=== PATIENT | female | born 1995 | race Caucasian/White ===

== ENCOUNTER → 2019-01-19 13:45 | Outpatient (CLI) | payer OTHER, BC, SELFPAY ==
[2019-01-19 14:20] LABS: Basophils % 0.6 % (0.1-2.0); Eosinophils # 0.2 K/mm3 (0.0-0.4); Hematocrit 38.4 % (37.0-47.0); Hemoglobin 11.7 g/dL (12.2-16.2); Lymphocytes # 1.3 K/mm3 (0.7-4.5); Lymphocytes % 28.4 % (10-50); Mean Corpuscular HGB Conc 30.5 g/dL (31.8-35.4); Mean Corpuscular Hemoglobin 25.4 pg (27.0-31.2); Mean Corpuscular Volume 83.4 fl (81-99); Mean Platelet Volume 7.5 fl (7.4-10.4); Monocytes # 0.3 K/mm3 (0.1-1.0); Monocytes % 6.1 % (1.7-9.3); Neutrophils # 2.9 K/mm3 (1.8-7.8); Neutrophils % 60.9 % (37.0-80.0); Platelet Count 272 K/mm3 (142-424); Red Cell Distribution Width 16.3 % (11.5-17.5); White Blood Count 4.7 K/mm3 (4.8-10.8)
[2019-01-19 15:35] LABS: Alanine Aminotransferase 24 U/L (12-78); Albumin Level 3.7 gm/dL (3.4-5.0); Albumin/Globulin Ratio 1.2 (1.1-1.8); Alkaline Phosphatase 61 U/L (46-116); Amylase 62 U/L (25-115); Anion Gap 10.8 mEq/L (5-15); Aspartate Amino Transferase 10 U/L (15-37); Bilirubin,Total 0.4 mg/dL (0.2-1.0); Blood Urea Nitrogen 9 mg/dL (7-18); Calcium 8.6 mg/dL (8.5-10.1); Carbon Dioxide 28 mmol/L (21.0-32.0); Chloride 107 mmol/L (98-107); Estimated Glomerular Filt Rate 76 ml/min (>60); Ferritin 19 ng/mL (8-388); GFR (African American) 92 ML/MIN (>60); Globulin 3.2 gm/dl (1.3-3.2); Glucose 68 mg/dL (74-106); Lipase 206 u/L (73-393); Potassium 3.8 mmoL/L (3.5-5.1); Sodium 142 mmol/L (136-145); Total Protein,Serum 6.9 gm/dL (6.4-8.2)
[2019-01-19 15:36] LABS: C-Reactive Protein < 0.2 mg/L (0.0-0.9)
[2019-01-19 17:09] LABS: Erythrocyte Sedimentation Rate 13 mm/hr (0-20)
[2019-01-21 08:40] LABS: Iron 59 ug/dL (27-159); UIBC 264 ug/dL (131-425)
[2019-01-21 18:12] LABS: Vitamin D 25 Hydroxy 24.6 ng/mL (30.0-100.0)
[2019-01-21 18:15] LABS: Deamidated Gliadin Abs, IgA 2 units (0-19); Deamidated Gliadin Abs, IgG 2 units (0-19); Iron Saturation 18 % (15-55); Tissue Transglutaminase IgA Ab <2 U/mL (0-3); Tissue Transglutaminase IgG Ab <2 U/mL (0-5); Vitamin B12 863 pg/mL (232-1245)
[2019-01-23 20:15] LABS: Endomysial IgA Antibody Negative (Negative)
[2019-01-26 08:16] LABS: Reticulin IgA Antibody Negative titer (Neg:<1:2.5)
== END ==
PROVIDERS: PCP Nurse Practitioner Family; Visit Provider Internal Medicine Gastroenterology
DX: R10.11 Right upper quadrant pain (principal); K58.1 Irritable bowel syndrome with constipation; R11.0 Nausea
CPT/HCPCS: 36415; 80053; 82150; 82607; 82652; 82728; 83516; 83540; 83550; 83690; 85025; 85651; 86140; 86255; 86256

== ENCOUNTER → 2019-03-14 14:42 | Outpatient (CLI) | payer BC, OTHER, SELFPAY ==
[2019-03-14 15:11] LABS: Basophils % 0.7 % (0.1-2.0); Eosinophils # 0.1 K/mm3 (0.0-0.4); Eosinophils % 1.8 % (0.1-12.0); Hematocrit 37.3 % (37.0-47.0); Lymphocytes # 2.1 K/mm3 (0.7-4.5); Lymphocytes % 35.7 % (10-50); Mean Corpuscular HGB Conc 32.1 g/dL (31.8-35.4); Mean Corpuscular Hemoglobin 28.2 pg (27.0-31.2); Mean Corpuscular Volume 87.9 fl (81-99); Mean Platelet Volume 7.9 fl (7.4-10.4); Monocytes # 0.3 K/mm3 (0.1-1.0); Monocytes % 4.5 % (1.7-9.3); Neutrophils # 3.3 K/mm3 (1.8-7.8); Neutrophils % 57.3 % (37.0-80.0); Platelet Count 283 K/mm3 (142-424); Red Blood Count 4.25 M/mm3 (4.20-5.40); Red Cell Distribution Width 14.4 % (11.5-17.5); White Blood Count 5.8 K/mm3 (4.8-10.8)
[2019-03-14 16:42] LABS: Ferritin 20 ng/mL (8-388)
[2019-03-16 08:14] LABS: Iron 35 ug/dL (27-159); UIBC 275 ug/dL (131-425)
[2019-03-16 11:54] LABS: Iron Saturation 11 % (15-55)
== END ==
PROVIDERS: Visit Provider Internal Medicine Medical Oncology
DX: D50.9 Iron deficiency anemia, unspecified (principal); K92.1 Melena; Z87.19 Personal history of other diseases of the digestive system
CPT/HCPCS: 36415; 82728; 83540; 83550; 85025

== ENCOUNTER → 2019-03-27 14:41 | Outpatient (POV) | payer BC, OTHER, SELFPAY | PROVIDERS: PCP Nurse Practitioner Family; Referring Provider Internal Medicine Medical Oncology; Visit Provider Nurse Practitioner Family | DX: Z00.00 Encounter for general adult medical examination without abnormal findings (principal) ==

== ENCOUNTER → 2019-07-03 13:31 | Outpatient (POV) | payer BC, OTHER, SELFPAY | PROVIDERS: Visit Provider Nurse Practitioner Family | DX: Z00.00 Encounter for general adult medical examination without abnormal findings (principal) ==

== ENCOUNTER → 2019-07-18 17:59 | Outpatient (CLI) | payer OTHER, BC, SELFPAY ==
[2019-07-18 18:12] LABS: Basophils # 0.1 K/mm3 (0-0.2); Basophils % 0.8 % (0.1-2.0); Eosinophils # 0.2 K/mm3 (0.0-0.4); Eosinophils % 2.8 % (0.1-12.0); Hematocrit 40.1 % (37.0-47.0); Hemoglobin 12.9 g/dL (12.2-16.2); Lymphocytes # 2.4 K/mm3 (0.7-4.5); Mean Corpuscular HGB Conc 32.2 g/dL (31.8-35.4); Mean Corpuscular Hemoglobin 29.1 pg (27.0-31.2); Mean Corpuscular Volume 90.3 fl (81-99); Mean Platelet Volume 7.7 fl (7.4-10.4); Monocytes # 0.2 K/mm3 (0.1-1.0); Monocytes % 3.7 % (1.7-9.3); Neutrophils # 3.4 K/mm3 (1.8-7.8); Neutrophils % 54.7 % (37.0-80.0); Platelet Count 272 K/mm3 (142-424); Red Blood Count 4.44 M/mm3 (4.20-5.40); Red Cell Distribution Width 12.8 % (11.5-17.5); White Blood Count 6.2 K/mm3 (4.8-10.8)
[2019-07-18 19:04] LABS: Ferritin 38 ng/mL (8-388)
[2019-07-20 09:48] LABS: Iron 36 ug/dL (27-159); UIBC 340 ug/dL (131-425)
[2019-07-20 15:40] LABS: Iron Saturation 10 % (15-55)
== END ==
PROVIDERS: Visit Provider Internal Medicine Medical Oncology
DX: D64.9 Anemia, unspecified (principal)
CPT/HCPCS: 36415; 82728; 83540; 83550; 85025

== ENCOUNTER 2020-03-07 14:13 | Emergency (ER) | payer BC, SELFPAY ==
[2020-03-07 14:32] VITALS: BP 97/48; PULSE 62; RESP 15; TEMP 36.8; O2SAT 98; BMI 27.4
--- NOTE | 2020-03-07 14:54 | HMH.EDGENADL ---
ED Disposition Clinical Impression: Migraine Qualifiers: Migraine type: unspecified Status migrainosus presence: without status migrainosus Intractability: not intractable Qualified Code(s): G43.909 - Migraine, unspecified, not intractable, without status migrainosus Disposition: Home, Self-Care Condition on Discharge: Good Instructions: DI for Migraine Additional Instructions: You have been evaluated for headache, consistent with migraine. Please continue taking all medications as prescribed. Take Tylenol and Motrin. Follow-up with your primary care doctor. Return to the emergency department if you have any new or worsening symptoms, headache, vision changes, nausea, vomiting, neck pain, fevers, other concerns Referrals: PCP,No [Primary Care Provider] - Time of Disposition: 17:02 - Critical Care Critical Care Time: No Attestation: On 03/07/20, the high probability of a clinically significant, sudden or life threatening deterioration of the following system(s) required my full and direct attention, intervention and personal management. The time I documented below is in addition to time spent performing reported procedures but includes the following listed in this critical care notation. Medical Decision Making - Medical Records Medical records reviewed: Yes: I reviewed the patient's medical records. - Alexandre Inquiry Pt receiving controlled substance: No Vital Signs: 03/07/20 14:32 03/07/20 15:02 03/07/20 16:00 Temperature 98.2 F Temperature Source Oral Pulse Rate [Right Brachial] 62 84 74 Respiratory Rate 15 15 Blood Pressure [Right Arm] 97/48 L 101/42 L 115/62 Blood Pressure Mean [Right Arm] 64 61 79 02 Sat by Pulse Oximetry 98 98 98 03/07/20 16:30 Temperature Temperature Source Pulse Rate [Right Brachial] 80 Respiratory Rate Blood Pressure [Right Arm] 92/50 L Blood Pressure Mean [Right Arm] 64 02 Sat by Pulse Oximetry 96 - Lab Data Lab Results 03/07/20 14:30: Urine HCG, Qual Negative 03/07/20 15:22: Urine Color Yellow, Urine Appearance Clear, Urine pH 8.0, Ur Specific [place] 1.015, Urine Protein Negative, Urine Glucose (UA) Negative, Urine Ketones Negative, Urine Blood Negative, Urine Nitrate Negative, Urine Bilirubin Negative, Urine Urobilinogen 4.0, Ur Leukocyte Esterase Negative, Urine WBC Occasional, Ur Squamous Epith Cells 3-5, Urine Bacteria Trace Orders (Tests/Meds): ED MEDICATIONS Discontinued Medications Generic Name Dose Route Start Last Admin Trade Name Laura PRN Reason Stop Dose Admin Diphenhydramine HCl 12.5 mg 03/07/20 14:36 03/07/20 15:42 Benadryl 50mg/1ml Vial IV 03/07/20 14:37 12.5 mg ONCE ONE Administration Sodium Chloride 1,000 mls @ 999 mls/hr 03/07/20 14:45 03/07/20 15:41 Sod Chlor 0.9% 1000ml Bag IV 03/07/20 15:45 999 mls/hr .Q1H1M ERNESTO Administration Ketorolac Tromethamine 15 mg 03/07/20 16:31 03/07/20 16:37 Toradol 30mg/Ml Vial IV 03/07/20 16:32 15 mg ONCE ONE Administration Ondansetron HCl 4 mg 03/07/20 16:32 03/07/20 16:37 Zofran 4mg/2ml Vial IV 03/07/20 16:33 4 mg ONCE ONE Administration Prochlorperazine Edisylate 10 mg 03/07/20 14:35 03/07/20 15:41 Compazine 10mg/2ml Vial IV 03/07/20 14:36 10 mg ONCE ONE Administration Medical Decision Narrative: In summary this is a 24-year-old female with history of migraines presenting to the emergency department with headache. Clinically stable on arrival. She says that this headache is similar in character to her previous headaches. She has had success with abortive medication in the emergency department. I doubt that this is something more sinister like intracranial mass, bleed. Patient does not have signs or symptoms of infectious etiology like meningitis. Plan to give IV fluids, Compazine, Benadryl. On reassessment headache had improved, but patient still had nausea. Given 4 mg of Zofran. After medication she was able to tolerate oral
[2020-03-07 15:02] VITALS: BP 101/42; PULSE 84; RESP 15; O2SAT 98
[2020-03-07 15:38] LABS: Microscopic, Urine URINE MICROSCOPIC (MICROSCOPIC)
[2020-03-07 15:40] LABS: Appearance,Urine CLEAR (Clear); Bilirubin,Urine Negative (Negative); Blood, Urine Negative (Negative); Color,Urine YELLOW (Yellow); Glucose,Urine (UA) Negative (Negative); Ketones,Urine Negative (Negative); Leukocyte Esterase,Urine Negative (Negative); Nitrate,Urine Negative (Negative); Protein,Urine Negative (Negative); Specific Gravity, Urine 1.015 (1.005-1.030)
[2020-03-07 15:43] LABS: Urine Pregnancy, HCG Qual. Negative (Negative)
[2020-03-07 16:00] VITALS: BP 115/62; PULSE 74; O2SAT 98
--- NOTE | 2020-03-07 16:08 | PC.NURSE ---
pt resting at this time
--- NOTE | 2020-03-07 16:18 | PC.NURSE ---
patient sleeping soundly on recheck. had to wake patient up to check vs, she states that the medication isn't helping, and she feels nauseaous. notified.
[2020-03-07 16:30] VITALS: BP 92/50; PULSE 80; O2SAT 96
[2020-03-07 16:35] LABS: Bacteria,Urine Trace /lpf; WBC,Urine Occasional #/hpf (0-3)
[2020-03-07 17:12] VITALS: BP 94/42; PULSE 75; RESP 17; TEMP 36.8; O2SAT 96
== END 2020-03-07 17:13 | disposition home or self-care (01) ==
PROVIDERS: Emergency Provider Emergency Medicine
DX: G43.119 Migraine with aura, intractable, without status migrainosus (principal); K21.9 Gastro-esophageal reflux disease without esophagitis; F41.9 Anxiety disorder, unspecified; Z79.899 Other long term (current) drug therapy
CPT/HCPCS: 81001; 81025; 96365; 96375; 99283; J2405

== ENCOUNTER 2020-06-02 14:38 | Emergency (ER) | payer BC, SELFPAY ==
[2020-06-02 14:45] VITALS: BP 112/68; PULSE 77; RESP 18; TEMP 36.8; O2SAT 98; BMI 27.4
--- NOTE | 2020-06-02 14:48 | HMH.EDUTC ---
[facility] Disposition Clinical Impression: Exposure to COVID-19 virus Disposition: Home, Self-Care Condition on Discharge: Good Instructions: Preventing the Spread of Coronavirus Discharge Instructions Additional Instructions: You have been tested for COVID19. These results take 24-48 hours. Due to your exposure, you should quarantine for 14 days from date of last contact. Referrals: Garth Ashley APRN [Primary Care Provider] - Forms: Work/School Release Time of Disposition: 14:56 Medical Decision Making - Alexandre Inquiry Pt receiving controlled substance: No Vital Signs: 06/02/20 14:45 Temperature 98.2 F Temperature Source Oral Pulse Rate [Radial] 77 Respiratory Rate 18 Blood Pressure [Right Arm] 112/68 Blood Pressure Mean [Right Arm] 82 Blood Pressure Source [Right Arm] Automatic Cuff Blood Pressure Position [Right Arm] Sitting 02 Sat by Pulse Oximetry 98 Oxygen Delivery Method Room Air Orders (Tests/Meds): ORDERS Category Date Time Status Covid-19 Nasal PCR Sendout Arun Stat Lab 06/02/20 14:45 Ordered [facility] HPI - General Stated complaint: Covid exposure Time Seen by Provider: 06/02/20 14:48 Mode of Arrival: Ambulatory Source of Information: Patient Limitations: No Limitations Description of Symptoms (Recalled from Triage Doc. by RN): exposure to covid, no symptoms HEENT Symptoms (Recalled from RN notes): No Resp Symptoms (Recalled from RN notes): No Skin Symptoms (Recalled from RN notes): No MS Symptoms (Recalled from RN notes): No Functional Status (Recalled from RN notes): wnl - History of Present Illness Provider Complaint: Parents tested positive for COVID19 yesterday. She sees them daily because they babysit for her son. Both she and her son are currently asymptomatic. Onset (ago): day(s) (1) Relieving factors: none Exacerbating factors: none Associated symptoms: denies other symptoms Treatments prior to arrival: none - Related Data Previous Rx's Medication Instructions Recorded sumatriptan succinate 100 mg tablet 100 mg PO Q2H PRN #9 tab 12/11/19 Allergies Allergy/AdvReac Type Severity Reaction Status Date / Time No Known Allergies Allergy Verified 03/07/20 15:27 - Worker's Comp Is this a Worker's Comp case?: No [facility] History - Hepatitis A Screen Drug use history?: No High risk sexual behaviors?: No History of sexually transmitted infection?: No Currently employed?: No Childcare worker?: No Do you have indoor plumbing?: Yes Do you have electricity?: Yes Attestation statement:: This patient has been screened for Hepatitis A risk factors. I have reviewed the patient's past medical history: Yes Medical History: Reports:: Anxiety, Gastroesophageal Reflux Disease(GERD) Denies:: Diabetes Mellitus Type 1, Diabetes Mellitus Type 2, Internal Pacemaker, Lung Disease, Seizures Other Medical History: Reports: Anemia Other Surgeries: Yes: No Previous Surgery, Appendectomy, Colonoscopy, Colon Resection, Dilation and Curettage. No: Pacemaker Amputation: No Fractures: No Comment: ovarian cyst removed, bowel resection - Social History Smoking Status: Never smoker Tobacco Type: e-cigarettes Alcohol Intake: never Substance Use Type: denies use Occupational Status: other Housing: house - Psychiatric History Pschychiatric History:: Reports:: Anxiety Family Hx:: Heart Attack, Stroke, Cancer ROS Obtained: Yes All systems reviewed & no additional complaints Physical Exam - General General appearance: alert, in no apparent distress - Head Head exam: normocephalic - Eye Eye exam: Present: PERRL - ENT ENT exam: Present: normal oropharynx - Neck Neck exam: Present: normal inspection - Chest Chest inspection: Present: normal inspection, symmetric chest wall rise - Respiratory Respiratory exam: Present: normal lung sounds bilaterally - Cardiovascular Cardiovascular exam: Present: regular rate, normal rhythm - Neurological Exam Neurologica
[2020-06-02 15:02] VITALS: BP 112/68; PULSE 77; RESP 18; TEMP 36.8; O2SAT 98
--- NOTE | 2020-06-03 02:16 | PC.NURSE ---
Lab called positive Covid, results given to Dr Clemons and [facility] follow up in AM
--- NOTE | 2020-06-03 11:59 | PC.NURSE ---
PATIENT NOTIFIED OF POSITIVE COVID RESULTS
== END 2020-06-02 15:03 | disposition home or self-care (01) ==
PROVIDERS: Emergency Provider Physician Assistant; PCP Nurse Practitioner Family
DX: U07.1 COVID-19 (principal); F41.9 Anxiety disorder, unspecified; K21.9 Gastro-esophageal reflux disease without esophagitis; Z90.49 Acquired absence of other specified parts of digestive tract
CPT/HCPCS: 99201; U0003

== ENCOUNTER 2020-06-12 06:06 | Emergency (ER) | payer BC, SELFPAY ==
[2020-06-12 06:08] VITALS: BP 106/66; PULSE 71; RESP 17; TEMP 37; O2SAT 99; BMI 27.4
--- NOTE | 2020-06-12 06:17 | ECG_ITS ---
APPROVED REPORT Exam: Resting ECG HR:73 bpm ECG Measurements Heart Rate 73 AXES MI 136 P 76 QRSd 76 QRS 90 QT 382 T 57 QTc 420 Conclusion Normal sinus rhythm Rightward axis Borderline ECG Electronically signed by : Reza aSlter, 06/14/2020 08:06:21
--- NOTE | 2020-06-12 06:32 | XR_ITS ---
PROCEDURE: XR CHEST PORTABLE CLINICAL HISTORY: COVID pos. SOB Shortness of air COMPARISON: CR Chest from 12/20/2018 FINDINGS: The cardiomediastinal silhouette and pulmonary vascularity are within normal limits. Patchy density noted in the right lower lobe suspicious for an area infiltrate. No acute bony abnormalities. IMPRESSION: Patchy infiltrate/pneumonia right lower lobe Dictated by: Brooks Ramirez MD 06/12/2020 07:06 Brooks Ramirez MD in [facility] 06/12/2020 07:06
[2020-06-12 06:40] LABS: Microscopic, Urine URINE MICROSCOPIC (MICROSCOPIC)
[2020-06-12 06:44] LABS: Appearance,Urine CLEAR (Clear); Bilirubin,Urine Negative (Negative); Blood, Urine Negative (Negative); Color,Urine YELLOW (Yellow); Glucose,Urine (UA) Negative (Negative); Ketones,Urine Negative (Negative); Leukocyte Esterase,Urine Negative (Negative); Nitrate,Urine Negative (Negative); PH,Urine 5.5 (5.0-8.5); Protein,Urine Negative (Negative); Specific Gravity, Urine 1.025 (1.005-1.030); Urobilinogen,Urine 0.2 EU/dl (0.2)
[2020-06-12 06:45] LABS: Basophils % 0.6 % (0.1-2.0); Eosinophils # 0.1 K/mm3 (0.0-0.4); Eosinophils % 1.5 % (0.1-12.0); Hemoglobin 13.8 g/dL (12.2-16.2); Lymphocytes # 1.7 K/mm3 (0.7-4.5); Lymphocytes % 37.4 % (10-50); Mean Corpuscular HGB Conc 32.9 g/dL (31.8-35.4); Mean Corpuscular Hemoglobin 28.5 pg (27.0-31.2); Mean Corpuscular Volume 86.6 fl (81-99); Monocytes # 0.3 K/mm3 (0.1-1.0); Monocytes % 5.7 % (1.7-9.3); Neutrophils # 2.5 K/mm3 (1.8-7.8); Neutrophils % 54.7 % (37.0-80.0); Platelet Count 225 K/mm3 (142-424); Red Blood Count 4.86 M/mm3 (4.20-5.40); Red Cell Distribution Width 13.3 % (11.5-17.5); White Blood Count 4.6 K/mm3 (4.8-10.8)
[2020-06-12 06:48] LABS: Urine Pregnancy, HCG Qual. Negative (Negative)
[2020-06-12 06:49] LABS: Chloride 103 mmol/L (98-107); Potassium 3.5 mmoL/L (3.5-5.1); Sodium 137 mmol/L (136-145)
[2020-06-12 06:52] LABS: Alanine Aminotransferase 12 U/L (12-78); Albumin Level 4.4 g/dl (3.5-5.0); Albumin/Globulin Ratio 1.4 (1.1-1.8); Alkaline Phosphatase 55 U/L (38-126); Anion Gap 11.5 mEq/L (5-15); Aspartate Amino Transferase 23 U/L (14-36); Bilirubin,Total 0.3 mg/dl (0.2-1.3); Blood Urea Nitrogen 8 mg/dl (7-17); Carbon Dioxide 26 mmol/L (22.0-30.0); Creatinine Clearance Estimated 115 mL/min (50-200); Estimated Glomerular Filt Rate 76 ml/min (>60); GFR (African American) 92 ML/MIN (>60); Globulin 3.1 g/dL (1.3-3.2); Total Protein,Serum 7.5 g/dl (6.3-8.2)
[2020-06-12 06:53] LABS: Glucose 92 mg/dl (74-100)
[2020-06-12 06:55] LABS: Bacteria,Urine Trace /lpf; WBC,Urine Occasional #/hpf (0-3)
--- NOTE | 2020-06-12 07:05 | CT_ITS ---
PROCEDURE: CT ANGIO CHEST CLINCIAL INDICATION: chest tightness and SOB, Covid19 positive COMPARISON: CR XR CHEST PORTABLE from 06/12/2020 TECHNIQUE: IV Contrast: 70ML Isovue 370 Axial images obtained with sagittal and coronal reformats. All CT scans at the facility use one or more dose reduction, viz: automated exposure control, ma/kV adjustment per patient size (including targeted exams where dose is matched to indication, i.e. head), or iterative reconstruction technique. FINDINGS: HEART AND MEDIASTINAL STRUCTURES: No evidence of aortic aneurysm or dissection. No evidence pulmonary embolus.. There is increased soft tissue density in the anterior mediastinum consistent with residual thymic tissue. LUNGS AND PLEURAL SPACES: There is patchy alveolar opacification in both lower lobes posteriorly and in the right lower lobe medially consistent with mild bilateral pneumonia. No effusions are evident. BONY STRUCTURES: There is minimal thoracic scoliosis convex right with mild degenerative changes in the thoracic spine. UPPER ABDOMEN: Mild prominence of the gastric wall which may be due to nondistention. ADDITIONAL FINDINGS: No other significant abnormalities. IMPRESSION: 1. No evidence of pulmonary embolus. 2. Nonspecific airspace disease in the lower lobes which could be seen with stated history of Covid19 3. Other nonacute findings detailed above Dictated by: Brooks Ramirez MD 06/12/2020 09:23 Brooks Ramirez MD in [facility] 06/12/2020 09:23
[2020-06-12 07:06] LABS: Troponin I < 0.01 ng/ml (0.00-0.034)
--- NOTE | 2020-06-12 07:08 | HMH.EDSOB ---
ED Disposition Clinical Impression: Pleurisy, COVID-19 Disposition: Home, Self-Care Condition on Discharge: Good Instructions: DI for Shortness of Breath Additional Instructions: pase call pcp for follow up - Prescriptions: Azithromycin [Zithromax 250mg tab] 250 mg PO DIRECTED #6 tab Transmission Status: Pending to [facility] #[id number] Referrals: Garth Ashley APRN [Primary Care Provider] - - Critical Care Critical Care Time: No Attestation: On 06/12/20, the high probability of a clinically significant, sudden or life threatening deterioration of the following system(s) required my full and direct attention, intervention and personal management. The time I documented below is in addition to time spent performing reported procedures but includes the following listed in this critical care notation. Medical Decision Making - Medical Records Medical records reviewed: Yes: I reviewed the patient's medical records. - Alexandre Inquiry Pt receiving controlled substance: No Vital Signs: 06/12/20 06:08 Temperature 98.6 F Temperature Source Oral Pulse Rate [Left Radial] 71 Respiratory Rate 17 Blood Pressure [Right Arm] 106/66 L Blood Pressure Mean [Right Arm] 79 Blood Pressure Source [Right Arm] Automatic Cuff Blood Pressure Position [Right Arm] Sitting 02 Sat by Pulse Oximetry 99 Oxygen Delivery Method Room Air - Lab Data Lab results reviewed: Yes: I reviewed the patient's lab results. Lab Results 06/12/20 06:20: WBC 4.6 L, RBC 4.86, Hgb 13.8, Hct 42.0, MCV 86.6, MCH 28.5, MCHC 32.9, RDW 13.3, Plt Count 225, MPV 8.0, Neut % (Auto) 54.7, Lymph % (Auto) 37.4, [place] % (Auto) 5.7, Eos % (Auto) 1.5, Baso % (Auto) 0.6, Neut # (Auto) 2.5, Lymph # (Auto) 1.7, [place] # (Auto) 0.3, Eos # (Auto) 0.1, Baso # (Auto) 0.0 06/12/20 06:20: Sodium 137, Potassium 3.5, Chloride 103, Carbon Dioxide 26, Anion Gap 11.5, BUN 8, Creatinine 0.90, Estimated Creat Clear 115, Estimated GFR 76, Est GFR ( Amer) 92, Glucose 92, Calcium 9.0, Total Bilirubin 0.3, AST 23, ALT 12, Alkaline Phosphatase 55, Troponin I < 0.01, Total Protein 7.5, Albumin 4.4, Globulin 3.1, Albumin/Globulin Ratio 1.4 06/12/20 06:25: Urine Color Yellow, Urine Appearance Clear, Urine pH 5.5, Ur Specific [place] 1.025, Urine Protein Negative, Urine Glucose (UA) Negative, Urine Ketones Negative, Urine Blood Negative, Urine Nitrate Negative, Urine Bilirubin Negative, Urine Urobilinogen 0.2, Ur Leukocyte Esterase Negative, Urine RBC None, Urine WBC Occasional, Ur Squamous Epith Cells 5-10, Urine Bacteria Trace 06/12/20 06:25: Urine HCG, Qual Negative Result diagrams: 06/12/20 06:20 06/12/20 06:20 Orders (Tests/Meds): ED MEDICATIONS Generic Name Dose Route Start Last Admin Trade Name Freq PRN Reason Stop Dose Admin Sodium Chloride 1,000 mls @ 999 mls/hr 06/12/20 06:45 06/12/20 06:55 Sod Chlor 0.9% 1000ml Bag IV 06/12/20 07:45 999 mls/hr .Q1H1M ERNESTO Administration Discontinued Medications Generic Name Dose Route Start Last Admin Trade Name Freq PRN Reason Stop Dose Admin Dexamethasone Sodium Phosphate 10 mg 06/12/20 06:34 06/12/20 06:36 Dexamethasone 4mg/Ml 5ml Mdv IV 06/12/20 06:35 10 mg ONCE ONE Administration Iopamidol 70 ml 06/12/20 07:34 06/12/20 07:35 Iopamidol-370 (76%);100ml Bottle IV 06/12/20 07:35 70 ml ONCE ONE Administration Sodium Chloride 10 ml 06/12/20 07:34 06/12/20 07:35 Sodium Chloride 0.9% 10ml Syr (Rad Only) IV 06/12/20 07:35 10 ml ONCE ONE Administration Sodium Chloride 50 ml 06/12/20 07:34 06/12/20 07:35 0.9 % Sodium Chloride 50 Ml Vial IV 06/12/20 07:35 50 ml ONCE ONE Administration ORDERS Category Date Time Status CT Chest w/PE protocol [CT angio chest] Stat Cat Scan 06/12/20 07:05 Taken Troponin I Q3H Lab 06/12/20 09:45 Ordered Troponin I Q3H Lab 06/12/20 12:45 Ordered - Radiology Data #1 Image(s): Chest Image Reviewed: Yes I reviewe
--- NOTE | 2020-06-12 07:20 | PC.NURSE ---
pt to CT
--- NOTE | 2020-06-12 07:27 | PC.NURSE ---
notified ER MD of radiologist reading of xray, awaiting CT results. no new orders at this time
--- NOTE | 2020-06-12 07:29 | PC.NURSE ---
pt return from radiology
[2020-06-12 08:19] VITALS: BP 123/74; PULSE 78; RESP 16; TEMP 36.6; O2SAT 98
== END 2020-06-12 08:21 | disposition home or self-care (01) ==
PROVIDERS: Emergency Provider Emergency Medicine; PCP Nurse Practitioner Family
DX: U07.1 COVID-19 (principal); R09.1 Pleurisy; K21.9 Gastro-esophageal reflux disease without esophagitis; F41.9 Anxiety disorder, unspecified
CPT/HCPCS: 71045; 71275; 80053; 81001; 81025; 84484; 85025; 93005; 96365; 96375; 99282; Q9967

== ENCOUNTER 2021-03-21 11:05 | Emergency (ER) | payer BC, SELFPAY ==
[2021-03-21] VITALS (8 sets, daily range): BP systolic 97–114; BP diastolic 49–70; PULSE 65–83; RESP 15–18; TEMP 36.7; O2SAT 83–100; BMI 27.4
[2021-03-21 11:42] LABS: Microscopic, Urine URINE MICROSCOPIC (MICROSCOPIC)
--- NOTE | 2021-03-21 11:42 | US_ITS ---
PROCEDURE: US TRANSVAGINAL CLINICAL INDICATION: pain, torsion COMPARISON: No exams were available for comparison FINDINGS: UTERUS: 8cm x 6cmx 5cm with a combined endometrial thickness of 14.7mm LEFT OVARY: [id number] with a volume of 8.6ml. RIGHT OVARY: [id number] with a volume of 13.2ml. There is a small amount fluid in the cul-de-sac. Blood flow is present within both ovaries. There is a 17 mm right ovarian cyst with some low level echoes and may represent a hemorrhagic cyst. IMPRESSION: 1. Thickened endometrium 2. Blood flow is present in both ovaries. 3. Small right ovarian cyst. 4. Cul-de-sac fluid. Dictated by: Brooks Ramirez MD 03/21/2021 13:32 Brooks Ramirez MD in [facility] 03/21/2021 13:32
[2021-03-21 11:47] LABS: Appearance,Urine CLEAR (Clear); Bilirubin,Urine Negative (Negative); Blood, Urine Negative (Negative); Color,Urine YELLOW (Yellow); Glucose,Urine (UA) Negative (Negative); Ketones,Urine Negative (Negative); Leukocyte Esterase,Urine TRACE (Negative); Nitrate,Urine Negative (Negative); Protein,Urine Negative (Negative); Specific Gravity, Urine 1.025 (1.005-1.030)
[2021-03-21 11:52] LABS: Urine Pregnancy, HCG Qual. Positive (Negative)
[2021-03-21 11:59] LABS: Bacteria,Urine Trace /lpf; WBC,Urine Occasional #/hpf (0-3)
[2021-03-21 12:03] LABS: Basophils % 0.4 % (0.1-2.0); Eosinophils # 0.2 K/mm3 (0.0-0.4); Eosinophils % 3.4 % (0.1-12.0); Hematocrit 32.9 % (37.0-47.0); Hemoglobin 10.4 g/dL (12.2-16.2); Lymphocytes # 1.9 K/mm3 (0.7-4.5); Lymphocytes % 29.5 % (10-50); Mean Corpuscular HGB Conc 31.5 g/dL (31.8-35.4); Mean Corpuscular Volume 79.4 fl (81-99); Mean Platelet Volume 8.1 fl (7.4-10.4); Monocytes # 0.3 K/mm3 (0.1-1.0); Monocytes % 5.2 % (1.7-9.3); Neutrophils # 3.9 K/mm3 (1.8-7.8); Neutrophils % 61.4 % (37.0-80.0); Platelet Count 282 K/mm3 (142-424); Red Blood Count 4.14 M/mm3 (4.20-5.40); Red Cell Distribution Width 15.5 % (11.5-17.5); White Blood Count 6.3 K/mm3 (4.8-10.8)
[2021-03-21 12:09] LABS: Alanine Aminotransferase 11 U/L (12-78); Albumin Level 3.7 g/dl (3.5-5.0); Albumin/Globulin Ratio 1.4 (1.1-1.8); Alkaline Phosphatase 43 U/L (38-126); Anion Gap 10.7 mEq/L (5-15); Aspartate Amino Transferase 20 U/L (14-36); Bilirubin,Total 0.5 mg/dl (0.2-1.3); Blood Urea Nitrogen 9 mg/dl (7-17); Calcium 8.6 mg/dl (8.4-10.2); Carbon Dioxide 25 mmol/L (22.0-30.0); Chloride 105 mmol/L (98-107); Creatinine Clearance Estimated 147 mL/min (50-200); Estimated Glomerular Filt Rate 100 ml/min (>60); GFR (African American) 121 ML/MIN (>60); Globulin 2.7 g/dL (1.3-3.2); Glucose 92 mg/dl (74-100); Lipase 92 U/L (23-300); Potassium 3.7 mmoL/L (3.5-5.1); Sodium 137 mmol/L (136-145); Total Protein,Serum 6.4 g/dl (6.3-8.2)
--- NOTE | 2021-03-21 12:52 | PC.NURSE ---
contacted radiology to request that they have radiologist read pt ultrasound
[2021-03-21 13:44] LABS: HCG,Quantitative 56 mIU/ml (0-5.42)
--- NOTE | 2021-03-21 14:05 | HMH.EDGENADL ---
ED Disposition Clinical Impression: Ovarian cyst Qualifiers: Laterality: right Qualified Code(s): N83.201 - Unspecified ovarian cyst, right side Qualifiers: Weeks of gestation: less than 8 weeks Qualified Code(s): Z3A.01 - Less than 8 weeks gestation of Disposition: Home, Self-Care Condition on Discharge: Good Instructions: DI for Ectopic Referrals: Garth Ashley APRN [Primary Care Provider] - Chong Cerna MD [Staff Physician] - - Critical Care Critical Care Time: No Attestation: On 03/21/21, the high probability of a clinically significant, sudden or life threatening deterioration of the following system(s) required my full and direct attention, intervention and personal management. The time I documented below is in addition to time spent performing reported procedures but includes the following listed in this critical care notation. Medical Decision Making - Medical Records Medical records reviewed: Yes: I reviewed the patient's medical records. - Alexandre Inquiry Pt receiving controlled substance: No Vital Signs: 03/21/21 11:06 03/21/21 12:52 03/21/21 13:00 Temperature 98.0 F Temperature Source Oral Pulse Rate 65 83 Pulse Rate [Right Radial] 74 Respiratory Rate 18 15 16 Blood Pressure 97/49 L 99/49 L Blood Pressure [Right Arm] 109/70 L Blood Pressure Mean 59 62 Blood Pressure Mean [Right Arm] 83 Blood Pressure Source [Right Arm] Automatic Cuff Blood Pressure Position [Right Arm] Sitting 02 Sat by Pulse Oximetry 100 83 L 100 Oxygen Delivery Method Room Air - Lab Data Lab Results 03/21/21 11:35: Urine Color Yellow, Urine Appearance Clear, Urine pH 6.0, Ur Specific [place] 1.025, Urine Protein Negative, Urine Glucose (UA) Negative, Urine Ketones Negative, Urine Blood Negative, Urine Nitrate Negative, Urine Bilirubin Negative, Urine Urobilinogen 1.0, Ur Leukocyte Esterase Trace, Urine RBC None, Urine WBC Occasional, Ur Squamous Epith Cells None, Urine Bacteria Trace 03/21/21 11:35: Urine HCG, Qual Positive 03/21/21 11:53: WBC 6.3, RBC 4.14 L, Hgb 10.4 L, Hct 32.9 L, MCV 79.4 L, MCH 25.0 L, MCHC 31.5 L, RDW 15.5, Plt Count 282, MPV 8.1, Neut % (Auto) 61.4, Lymph % (Auto) 29.5, [place] % (Auto) 5.2, Eos % (Auto) 3.4, Baso % (Auto) 0.4, Neut # (Auto) 3.9, Lymph # (Auto) 1.9, [place] # (Auto) 0.3, Eos # (Auto) 0.2, Baso # (Auto) 0.0 03/21/21 11:53: Sodium 137, Potassium 3.7, Chloride 105, Carbon Dioxide 25, Anion Gap 10.7, BUN 9, Creatinine 0.70, Estimated Creat Clear 147, Estimated GFR 100, Est GFR ( Amer) 121, Glucose 92, Calcium 8.6, Total Bilirubin 0.5, AST 20, ALT 11 L, Alkaline Phosphatase 43, Total Protein 6.4, Albumin 3.7, Globulin 2.7, Albumin/Globulin Ratio 1.4 03/21/21 11:53: Lipase 92 03/21/21 11:53: HCG, Quant 56 H Result diagrams: 03/21/21 11:53 03/21/21 11:53 Orders (Tests/Meds): ED MEDICATIONS Discontinued Medications Generic Name Dose Route Start Last Admin Trade Name Freq PRN Reason Stop Dose Admin Ketorolac Tromethamine 30 mg 03/21/21 11:43 03/21/21 11:55 Ketorolac 30mg/Ml Vial IV 03/21/21 11:44 30 mg ONCE ONE Administration - US Data US Images: Pelvis ED US Reviewed: Yes: I have reviewed the patient's US results, I have viewed radiologist's interpretation Findings Narrative: IMPRESSION: 1. Thickened endometrium 2. Blood flow is present in both ovaries. 3. Small right ovarian cyst. 4. Cul-de-sac fluid. - Reevaluation(s) Time: 14:10 Reevaluation #1: On reevaluation, patient's pain is improved. It turns out that her hCG was positive. Her serum quant was very low. This does suggest that she has early . However there is also concern for ectopic. Patient did have a cyst in her right ovary, however she will need follow-up on this. I did explain to the patient that she needs to be seen in 48 hours for repeat hCG level and reexamination. She is to follow-up with her [employer] or
== END 2021-03-21 14:54 | disposition home or self-care (01) ==
PROVIDERS: Emergency Provider Emergency Medicine; PCP Nurse Practitioner Family
DX: N83.201 Unspecified ovarian cyst, right side (principal); Z3A.01 Less than 8 weeks gestation of pregnancy; K21.9 Gastro-esophageal reflux disease without esophagitis; F41.9 Anxiety disorder, unspecified; F17.290 Nicotine dependence, other tobacco product, uncomplicated
CPT/HCPCS: 76830; 80053; 81001; 81025; 83690; 84702; 85025; 96374; 99283

== ENCOUNTER → 2021-03-24 16:07 | Outpatient (CLI) | payer BC, SELFPAY ==
[2021-03-24 20:43] LABS: HCG,Quantitative 160 mIU/ml (0-5.42)
== END ==
PROVIDERS: Visit Provider Obstetrics & Gynecology
DX: Z34.90 Encounter for supervision of normal pregnancy, unspecified, unspecified trimester (principal)
CPT/HCPCS: 36415; 84702

== ENCOUNTER → 2021-03-31 10:24 | Outpatient (CLI) | payer BC, SELFPAY ==
[2021-03-31 12:10] LABS: HCG,Quantitative 4902 mIU/ml (0-5.42)
== END ==
PROVIDERS: Visit Provider Obstetrics & Gynecology
DX: Z34.90 Encounter for supervision of normal pregnancy, unspecified, unspecified trimester (principal)
CPT/HCPCS: 36415; 84702

== ENCOUNTER 2021-04-12 23:05 | Emergency (ER) | payer BC, SELFPAY ==
[2021-04-12 23:07] VITALS: BP 114/59; PULSE 78; RESP 16; TEMP 36.7; O2SAT 100; BMI 27.4
--- NOTE | 2021-04-12 23:30 | US_ITS ---
PROCEDURE INFORMATION: Exam: US First Trimester, Transabdominal Exam date and time: 04/12/2021 11:30 PM Age: 25 years old Clinical indication: Other: Rlq pain HX of RT ov cyst; Gestational age or lmp: Lmp =02/24/2021; ; Additional info: Rlq cramping early HX RT ov cyst TECHNIQUE: Imaging protocol: Real-time transabdominal obstetrical ultrasound of the maternal pelvis and a first trimester , less than 14 weeks 0 days, with image documentation. COMPARISON: CT ABDOMEN PELVIS WO CON 08/20/2019 1:06 PM FINDINGS: Gestation: Intrauterine gestation. Yolk sac measures 0.7 cm. Technically limited study. heart tracing was not obtained. Embryonic/ heart rate: Not obtained Extra-embryonic membranes/Placenta: Unremarkable. No subchorionic bleed. BIOMETRY: Gestational age (AUA): Gestational age is 6 weeks 5 days. [place]-Rump length: [place]-rump length measures 0.7 cm. MATERNAL: Uterus: Unremarkable. Cervix: Unremarkable. Right adnexa: Cyst in the right ovary measuring 1.8 centimetres. Left adnexa: Unremarkable. Intraperitoneal space: No intraperitoneal free fluid. IMPRESSION: Technically limited study. heart tracing was not obtained. Recommend repeat study. Intrauterine gestation.
--- NOTE | 2021-04-12 23:51 | HMH.EDGENADL ---
ED Disposition Clinical Impression: Asymptomatic bacteriuria during Disposition: Home, Self-Care Condition on Discharge: Fair Instructions: DI for Acute Cystitis Additional Instructions: You have been evaluated for abdominal pain and . You have an intrauterine gestation. Also found to have asymptomatic bacteriuria, evidence of a urinary tract infection. Please take Macrobid as prescribed. Follow-up with your MEDIA OPERATOR. Tylenol for pain. Return for any new or worsening symptoms. Prescriptions: Nitrofurantoin Monohyd/M-Cryst [Nitrofurantoin [place]-Mcr 100 mg] 100 mg PO BID #10 cap Transmission Status: Pending to [id number] Referrals: Garth Ashley APRN [Primary Care Provider] - Time of Disposition: 00:55 - Critical Care Critical Care Time: No Attestation: On 04/12/21, the high probability of a clinically significant, sudden or life threatening deterioration of the following system(s) required my full and direct attention, intervention and personal management. The time I documented below is in addition to time spent performing reported procedures but includes the following listed in this critical care notation. Medical Decision Making - Medical Records Medical records reviewed: Yes: I reviewed the patient's medical records. - Alexandre Inquiry Pt receiving controlled substance: No Vital Signs: 04/12/21 23:07 Temperature 98.0 F Temperature Source Oral Pulse Rate [Right Radial] 78 Respiratory Rate 16 Blood Pressure [Right Arm] 114/59 L Blood Pressure Mean [Right Arm] 77 Blood Pressure Source [Right Arm] Automatic Cuff Blood Pressure Position [Right Arm] Sitting 02 Sat by Pulse Oximetry 100 Oxygen Delivery Method Room Air - Lab Data Lab Results 04/12/21 23:12: Urine Color Yellow, Urine Appearance Sl cloudy, Urine pH 6.0, Ur Specific [place] >= 1.030, Urine Protein Negative, Urine Glucose (UA) Negative, Urine Ketones Negative, Urine Blood 1+, Urine Nitrate Negative, Urine Bilirubin Negative, Urine Urobilinogen 0.2, Ur Leukocyte Esterase Trace, Urine RBC 3-5, Urine WBC 10-20, Ur Squamous Epith Cells 3-5, Urine Bacteria 1+ Orders (Tests/Meds): ORDERS Category Date Time Status US OB <= 14 weeks fetus Stat Exams 04/12/21 23:30 Taken HCG,Quantitative Stat Lab 04/12/21 23:59 Received Urine Culture Stat Micro 04/12/21 23:12 Received Medical Decision Narrative: In summary this is a 25-year-old G2, P1 female at 6 weeks gestation presenting to the emergency department with lower abdominal cramping. Patient clinically stable on arrival. Vital signs within normal limits. Differential diagnoses include intrauterine , ectopic . Will obtain quantitative hCG and urinalysis. Transvaginal ultrasound shows a 6-week gestation. This is consistent with patient's dates. Urinalysis shows white blood cells and leuk esterase, evidence of asymptomatic bacteriuria in . Patient given prescription for Macrobid. Recommended to take as prescribed and follow-up with her primary care doctor for clearance. Given return precautions. Stable for discharge. General Adult HPI - General Chief complaint: Abdominal Pain Stated complaint: 6 wks with severe cramping Time Seen by Provider: 04/12/21 23:11 Mode of Arrival: Ambulatory Limitations: No Limitations Description of Symptoms (Recalled from ER Triage Doc. by RN): Pt c/o lower abdominal cramping for 3 weeks since she was evaluated her in this ED and found out she was . Pt says cramping has become severe this past week and she has some associated nausea and being light-headed. Pt's abd is soft on palpation. She reports it starts sharp on the RLQ and radiates to LLQ. - History of Present Illness HPI narrative: 25-year-old female presenting to the emergency department with abdominal cramping in . Pain is described as right-sided, intermittent. Happens multiple times daily. Now radiating
[2021-04-13 00:07] LABS: Microscopic, Urine URINE MICROSCOPIC (MICROSCOPIC)
[2021-04-13 00:20] LABS: Appearance,Urine SL CLOUDY (Clear); Bilirubin,Urine Negative (Negative); Blood, Urine 1+ (Negative); Color,Urine YELLOW (Yellow); Glucose,Urine (UA) Negative (Negative); Ketones,Urine Negative (Negative); Leukocyte Esterase,Urine TRACE (Negative); Nitrate,Urine Negative (Negative); Protein,Urine Negative (Negative); Specific Gravity, Urine >= 1.030 (1.005-1.030); Urobilinogen,Urine 0.2 EU/dl (0.2)
[2021-04-13 00:26] LABS: Bacteria,Urine 1+ /lpf
[2021-04-13 01:00] VITALS: BP 115/58; PULSE 72; RESP 16; TEMP 37; O2SAT 98
[2021-04-13 01:05] LABS: HCG,Quantitative 50357 mIU/ml (0-5.42)
== END 2021-04-13 01:13 | disposition home or self-care (01) ==
PROVIDERS: Emergency Provider Emergency Medicine; PCP Nurse Practitioner Family
DX: O23.41 Unspecified infection of urinary tract in pregnancy, first trimester (principal); N39.0 Urinary tract infection, site not specified; B96.89 Other specified bacterial agents as the cause of diseases classified elsewhere; Z3A.01 Less than 8 weeks gestation of pregnancy
CPT/HCPCS: 76801; 81001; 84702; 87086; 99283

== ENCOUNTER → 2021-04-16 14:10 | Outpatient (CLI) | payer BC, SELFPAY ==
--- NOTE | 2021-04-16 14:10 | US_ITS ---
PROCEDURE: US OB <= 14 WEEKS FETUS CLINICAL INDICATION: Dates COMPARISON: No exams were available for comparison FINDINGS: An intrauterine gestational sac is present with a pole with a crown-rump length of 1.13cm correlating to gestational age of 7weeks 2days. heart tones are present with an FHR of 153bpm. Yolk sac is noted. There is a 3 x 2 cm right corpus luteum cyst IMPRESSION: Live IUP at 7 weeks 2 days. Estimated due date by Ultrasound is 12/01/2021 Dictated by: Brooks Ramirez MD 04/16/2021 18:58 Brooks Ramirez MD in [place] 04/16/2021 18:58
== END ==
PROVIDERS: PCP Nurse Practitioner Family; Visit Provider Obstetrics & Gynecology
DX: Z34.90 Encounter for supervision of normal pregnancy, unspecified, unspecified trimester (principal)
CPT/HCPCS: 76801

== ENCOUNTER → 2021-04-21 15:49 | Outpatient (CLI) | payer BC, SELFPAY ==
[2021-04-21 16:42] LABS: Basophils # 0.1 K/mm3 (0-0.2); Eosinophils # 0.1 K/mm3 (0.0-0.4); Eosinophils % 1.1 % (0.1-12.0); Hematocrit 35.3 % (37.0-47.0); Hemoglobin 10.9 g/dL (12.2-16.2); Lymphocytes # 2.1 K/mm3 (0.7-4.5); Lymphocytes % 28.6 % (10-50); Mean Corpuscular HGB Conc 30.9 g/dL (31.8-35.4); Mean Corpuscular Hemoglobin 25.2 pg (27.0-31.2); Mean Corpuscular Volume 81.6 fl (81-99); Mean Platelet Volume 8.2 fl (7.4-10.4); Monocytes # 0.4 K/mm3 (0.1-1.0); Neutrophils # 4.6 K/mm3 (1.8-7.8); Neutrophils % 64.3 % (37.0-80.0); Platelet Count 303 K/mm3 (142-424); Red Blood Count 4.33 M/mm3 (4.20-5.40); Red Cell Distribution Width 16.1 % (11.5-17.5); White Blood Count 7.1 K/mm3 (4.8-10.8)
[2021-04-23 07:34] LABS: Hepatitis B Surface Antigen Negative (Negative); Hepatitis C Antibody <0.1 s/co ratio (0.0-0.9)
[2021-04-23 08:25] LABS: Rubella Antibodies, IgG 1.64 index (Immune >0.99)
[2021-04-23 10:31] LABS: HIV Screen 4th Generation wRfx Non Reactive (Non Reactive)
[2021-04-23 11:46] LABS: Rapid Plasma Reagin Ab Titer Non Reactive (NonRea<1:1)
== END ==
PROVIDERS: Visit Provider Obstetrics & Gynecology
DX: Z34.90 Encounter for supervision of normal pregnancy, unspecified, unspecified trimester (principal)
CPT/HCPCS: 36415; 85025; 86592; 86703; 86762; 86850; 87340; 87380; G0432

== ENCOUNTER 2021-04-30 08:14 | Emergency (ER) | payer BC, SELFPAY ==
[2021-04-30] VITALS (7 sets, daily range): BP systolic 91–113; BP diastolic 40–79; PULSE 64–91; RESP 16–20; TEMP 36.6–36.8; O2SAT 97–100; BMI 27.4
--- NOTE | 2021-04-30 08:18 | HMH.EDGENADL ---
ED Disposition Clinical Impression: Hyperemesis complicating , antepartum Disposition: Home, Self-Care Condition on Discharge: Good Additional Instructions: Medications as directed. Discuss possibly taking Diclegis when you see Dr. Rosas. Referrals: Garth Ashley APRN [Primary Care Provider] - Time of Disposition: 11:07 - Critical Care Critical Care Time: No Attestation: On , the high probability of a clinically significant, sudden or life threatening deterioration of the following system(s) required my full and direct attention, intervention and personal management. The time I documented below is in addition to time spent performing reported procedures but includes the following listed in this critical care notation. Medical Decision Making - Medical Records Medical records reviewed: Yes: I reviewed the patient's medical records. - Alexandre Inquiry Pt receiving controlled substance: No Vital Signs: 04/30/21 08:15 04/30/21 08:30 04/30/21 09:00 Temperature 97.9 F Temperature Source Oral Pulse Rate 91 H 84 Pulse Rate [Right Radial] 82 Respiratory Rate 16 18 20 Blood Pressure 106/52 L 109/60 L Blood Pressure [Right Arm] 113/79 Blood Pressure Mean 70 73 Blood Pressure Mean [Right Arm] 90 Blood Pressure Source [Right Arm] Automatic Cuff Blood Pressure Position [Right Arm] Sitting 02 Sat by Pulse Oximetry 97 100 100 Oxygen Delivery Method Room Air 04/30/21 09:49 04/30/21 10:03 04/30/21 10:30 Temperature Temperature Source Pulse Rate 73 77 64 Pulse Rate [Right Radial] Respiratory Rate 18 20 20 Blood Pressure 104/65 L 91/40 L 100/49 L Blood Pressure [Right Arm] Blood Pressure Mean 78 57 66 Blood Pressure Mean [Right Arm] Blood Pressure Source [Right Arm] Blood Pressure Position [Right Arm] 02 Sat by Pulse Oximetry 100 100 100 Oxygen Delivery Method - Lab Data Lab results reviewed: Yes: I reviewed the patient's lab results. Lab Results 04/30/21 08:20: Urine Color Yellow, Urine Appearance Clear, Urine pH 6.5, Ur Specific [place] 1.025, Urine Protein Negative, Urine Glucose (UA) Negative, Urine Ketones Trace, Urine Blood Negative, Urine Nitrate Negative, Urine Bilirubin Negative, Urine Urobilinogen 0.2, Ur Leukocyte Esterase 2+ A, Urine RBC None, Urine WBC 5-10, Ur Squamous Epith Cells 3-5, Urine Bacteria None Orders (Tests/Meds): ED MEDICATIONS Discontinued Medications Generic Name Dose Route Start Last Admin Trade Name Laura PRN Reason Stop Dose Admin Lactated Ringer's 1,000 mls @ 999 mls/hr 04/30/21 08:30 04/30/21 08:51 Lactated Ringer's 1000 Ml Bag IV 04/30/21 09:30 999 mls/hr .Q1H1M ERNESTO Administration Lactated Ringer's 1,000 mls @ 999 mls/hr 04/30/21 10:00 04/30/21 09:59 Lactated Ringer's 1000 Ml Bag IV 04/30/21 11:00 999 mls/hr .Q1H1M ERNESTO Administration Nitrofurantoin Macrocrystals 100 mg 04/30/21 09:35 04/30/21 09:42 Nitrofurantoin 100mg Capsule PO 04/30/21 09:36 100 mg ONCE ONE Administration Ondansetron HCl 4 mg 04/30/21 10:40 04/30/21 10:49 Ondansetron 4mg/2ml Vial IV 04/30/21 10:41 4 mg ONCE ONE Administration ORDERS Category Date Time Status Urine Culture Stat Micro 04/30/21 08:20 Received Medical Decision Narrative: 25yo F evaluated for generalized fatigue and weakness. Patient is approximately 9 weeks . She reports significant morning sickness throughout her first . She is in no acute distress on initial evaluation. Her blood pressure is soft, map of 78, but she reports that her blood pressure always runs. She is afebrile, O2 sat 100% on room air. Patient's urinalysis is positive for leukocyte esterase without other acute finding. Treated with Macrobid in the emergency department. Patient is rehydrated with 2 L of lactated ringer. She also received Zofran IV. Encouraged her to follow-up with Dr. Rosas in 1 to 2 days. Discussed possibly adding D
[2021-04-30 08:33] LABS: Microscopic, Urine URINE MICROSCOPIC (MICROSCOPIC)
[2021-04-30 08:35] LABS: Appearance,Urine CLEAR (Clear); Bilirubin,Urine Negative (Negative); Blood, Urine Negative (Negative); Color,Urine YELLOW (Yellow); Glucose,Urine (UA) Negative (Negative); Ketones,Urine TRACE (Negative); Leukocyte Esterase,Urine 2+ (Negative); Nitrate,Urine Negative (Negative); PH,Urine 6.5 (5.0-8.5); Protein,Urine Negative (Negative); Specific Gravity, Urine 1.025 (1.005-1.030); Urobilinogen,Urine 0.2 EU/dl (0.2)
== END 2021-04-30 11:32 | disposition home or self-care (01) ==
PROVIDERS: Emergency Provider Family Medicine; PCP Nurse Practitioner Family
DX: O21.0 Mild hyperemesis gravidarum (principal); Z3A.09 9 weeks gestation of pregnancy; K21.9 Gastro-esophageal reflux disease without esophagitis; F41.9 Anxiety disorder, unspecified; F17.290 Nicotine dependence, other tobacco product, uncomplicated
CPT/HCPCS: 81001; 87086; 96365; 96366; 96375; 99282; J2405

== ENCOUNTER 2021-07-09 11:34 | Outpatient (CLI) | payer BC, SELFPAY ==
[2021-07-09 12:10] VITALS: BP 111/45; PULSE 72; RESP 18; TEMP 36.8; O2SAT 100; BMI 27.4
== END 2021-07-09 12:10 | disposition home or self-care (01) ==
LOC: OBOUT 11:35 → OB 11:35
PROVIDERS: PCP Nurse Practitioner Family; Visit Provider Obstetrics & Gynecology
DX: O36.8120 Decreased fetal movements, second trimester, not applicable or unspecified (principal); Z3A.19 19 weeks gestation of pregnancy
CPT/HCPCS: G0463

== ENCOUNTER 2021-08-23 21:11 | Emergency (ER) | payer BC, SELFPAY ==
[2021-08-23 21:12] VITALS: BP 130/80; PULSE 82; RESP 20; TEMP 36.8; O2SAT 99; BMI 28.2
--- NOTE | 2021-08-23 21:35 | PC.NURSE ---
FHR was 155
--- NOTE | 2021-08-23 21:56 | HMH.EDGENADL ---
ED Disposition Clinical Impression: Lower extremity pain, left Qualifiers: Weeks of gestation: 25 weeks Qualified Code(s): Z3A.25 - 25 weeks gestation of Disposition: Home, Self-Care Condition on Discharge: Good Instructions: DI for -- Discomforts and Remedies Additional Instructions: see pcp and ob for follow up and venous doppler in am Referrals: Garth Ashley APRN [Primary Care Provider] - - Critical Care Critical Care Time: No Attestation: On 08/23/21, the high probability of a clinically significant, sudden or life threatening deterioration of the following system(s) required my full and direct attention, intervention and personal management. The time I documented below is in addition to time spent performing reported procedures but includes the following listed in this critical care notation. Medical Decision Making - Medical Records Medical records reviewed: Yes: I reviewed the patient's medical records. - Alexandre Inquiry Pt receiving controlled substance: No Vital Signs: 08/23/21 21:12 Temperature 98.2 F Temperature Source Oral Pulse Rate [Right] 82 Respiratory Rate 20 Blood Pressure [Right Arm] 130/80 Blood Pressure Mean [Right Arm] 96 02 Sat by Pulse Oximetry 99 - Lab Data Lab results reviewed: Yes: I reviewed the patient's lab results. Lab Results 08/23/21 21:20: Urine Color Yellow, Urine Appearance Sl cloudy, Urine pH 6.0, Ur Specific [place] 1.025, Urine Protein Negative, Urine Glucose (UA) Negative, Urine Ketones Negative, Urine Blood Negative, Urine Nitrate Negative, Urine Bilirubin Negative, Urine Urobilinogen 0.2, Ur Leukocyte Esterase 1+ A, Urine WBC 5-10, Ur Squamous Epith Cells 5-10, Amorphous Sediment Trace 08/23/21 21:54: WBC 7.8, RBC 3.42 L, Hgb 8.8 L, Hct 27.4 L, MCV 79.9 L, MCH 25.7 L, MCHC 32.2, RDW 16.2, Plt Count 226, MPV 8.2, Neut % (Auto) 66.6, Lymph % (Auto) 27.4, [place] % (Auto) 4.5, Eos % (Auto) 1.2, Baso % (Auto) 0.4, Neut # (Auto) 5.2, Lymph # (Auto) 2.1, [place] # (Auto) 0.4, Eos # (Auto) 0.1, Baso # (Auto) 0.0 08/23/21 21:54: Sodium 134 L, Potassium 3.4 L, Chloride 106, Carbon Dioxide 21 L, Anion Gap 10.4, BUN 7, Creatinine 0.60, Estimated Creat Clear 176, Estimated GFR 120, Est GFR ( Amer) 145, Glucose 104 H, Calcium 8.3 L, Total Bilirubin 0.3, AST 24, ALT 15, Alkaline Phosphatase 53, Total Protein 6.6, Albumin 3.7, Globulin 2.9, Albumin/Globulin Ratio 1.3 Result diagrams: 08/23/21 21:54 08/23/21 21:54 Orders (Tests/Meds): ORDERS Category Date Time Status Urine Culture Stat Micro 08/23/21 21:20 Received - Physician Consults Physician Consulted: hallie Reason -: Pt condition Medical Decision Narrative: pt with possible dvt and will obtain doppler in am - lovenox tonight - possible lumbar radicular pain General Adult HPI - General Chief complaint: PAIN Stated complaint: left leg pain, swelling,, 25 wks Time Seen by Provider: 08/23/21 21:45 Mode of Arrival: Ambulatory Source of Information: Patient, Medical Record Limitations: No Limitations Description of Symptoms (Recalled from ER Triage Doc. by RN): pt is 25 weeks and c/o lt leg pain that starts at the back of her knee and goes down x 2 days. pt denies any trauma, accident. pt has bilateral equal pulses. no redness warmth note. - History of Present Illness HPI narrative: atraumatic pain and swelling to lt lower leg over the last 2 days - pt is 25 weeks preg - no hx of dvt or clotting disorder - no tob or sob - no vag bleeding Onset (ago): day(s) Location: lower extremity Severity: moderate Associated symptoms: denies other symptoms Treatments prior to arrival: none - Related Data Previous Rx's Medication Instructions Recorded prenat.vits,adrien,hfw-giez-aeyxo 1 tab PO DAILY #30 tab 03/24/21 ondansetron 4 mg disintegrating 4 mg PO Q4H PRN #30 tab 04/21/21 tablet promethazine 12.5 mg tablet 12.5 mg PO Q4-6H PRN #30 tab 21
[2021-08-23 22:04] LABS: Basophils % 0.4 % (0.1-2.0); Eosinophils # 0.1 K/mm3 (0.0-0.4); Eosinophils % 1.2 % (0.1-12.0); Hemoglobin 8.8 g/dL (12.2-16.2); Lymphocytes # 2.1 K/mm3 (0.7-4.5); Lymphocytes % 27.4 % (10-50); Mean Corpuscular HGB Conc 32.2 g/dL (31.8-35.4); Mean Corpuscular Hemoglobin 25.7 pg (27.0-31.2); Mean Corpuscular Volume 79.9 fl (81-99); Mean Platelet Volume 8.2 fl (7.4-10.4); Monocytes # 0.4 K/mm3 (0.1-1.0); Monocytes % 4.5 % (1.7-9.3); Neutrophils # 5.2 K/mm3 (1.8-7.8); Neutrophils % 66.6 % (37.0-80.0); Platelet Count 226 K/mm3 (142-424); Red Blood Count 3.42 M/mm3 (4.20-5.40); Red Cell Distribution Width 16.2 % (11.5-17.5); White Blood Count 7.8 K/mm3 (4.8-10.8)
[2021-08-23 22:05] LABS: Microscopic, Urine URINE MICROSCOPIC (MICROSCOPIC)
[2021-08-23 22:06] LABS: Hematocrit 27.4 % (37.0-47.0)
[2021-08-23 22:11] LABS: Appearance,Urine SL CLOUDY (Clear); Bilirubin,Urine Negative (Negative); Blood, Urine Negative (Negative); Color,Urine YELLOW (Yellow); Glucose,Urine (UA) Negative (Negative); Ketones,Urine Negative (Negative); Leukocyte Esterase,Urine 1+ (Negative); Nitrate,Urine Negative (Negative); Protein,Urine Negative (Negative); Specific Gravity, Urine 1.025 (1.005-1.030); Urobilinogen,Urine 0.2 EU/dl (0.2)
[2021-08-23 22:14] LABS: Alanine Aminotransferase 15 U/L (12-78); Albumin Level 3.7 g/dl (3.5-5.0); Albumin/Globulin Ratio 1.3 (1.1-1.8); Alkaline Phosphatase 53 U/L (38-126); Anion Gap 10.4 mEq/L (5-15); Aspartate Amino Transferase 24 U/L (14-36); Bilirubin,Total 0.3 mg/dl (0.2-1.3); Blood Urea Nitrogen 7 mg/dl (7-17); Calcium 8.3 mg/dl (8.4-10.2); Carbon Dioxide 21 mmol/L (22.0-30.0); Chloride 106 mmol/L (98-107); Creatinine Clearance Estimated 176 mL/min (50-200); Estimated Glomerular Filt Rate 120 ml/min (>60); GFR (African American) 145 ML/MIN (>60); Globulin 2.9 g/dL (1.3-3.2); Glucose 104 mg/dl (74-100); Potassium 3.4 mmoL/L (3.5-5.1); Sodium 134 mmol/L (136-145); Total Protein,Serum 6.6 g/dl (6.3-8.2)
[2021-08-23 22:17] LABS: Amorphous Sediment,Urine Trace /lpf
[2021-08-23 22:43] VITALS: BP 129/72; PULSE 80; RESP 18; TEMP 36.7; O2SAT 99
== END 2021-08-23 22:58 | disposition home or self-care (01) ==
PROVIDERS: Emergency Provider Emergency Medicine; PCP Nurse Practitioner Family
DX: M79.662 Pain in left lower leg (principal); Z3A.25 25 weeks gestation of pregnancy; D64.9 Anemia, unspecified; K21.9 Gastro-esophageal reflux disease without esophagitis; F41.9 Anxiety disorder, unspecified
CPT/HCPCS: 80053; 81001; 85025; 87086; 96372; 99282; 99283

== ENCOUNTER → 2022-09-17 13:28 | Outpatient (CLI) | payer OTHER, SELFPAY ==
[2022-09-17 14:37] LABS: Basophils # 0.1 K/mm3 (0-0.2); Basophils % 1.3 % (0.1-2.0); Eosinophils # 0.1 K/mm3 (0.0-0.4); Eosinophils % 1.6 % (0.1-12.0); Hematocrit 36.6 % (37.0-47.0); Hemoglobin 11.9 g/dL (12.2-16.2); Lymphocytes % 36.1 % (10-50); Mean Corpuscular HGB Conc 32.4 g/dL (31.8-35.4); Mean Corpuscular Hemoglobin 28.1 pg (27.0-31.2); Mean Corpuscular Volume 86.8 fl (81-99); Mean Platelet Volume 9.4 fl (7.4-10.4); Monocytes # 0.2 K/mm3 (0.1-1.0); Monocytes % 3.6 % (1.7-9.3); Neutrophils # 3.1 K/mm3 (1.8-7.8); Neutrophils % 57.5 % (37.0-80.0); Platelet Count 308 K/mm3 (142-424); Red Blood Count 4.22 M/mm3 (4.20-5.40); Red Cell Distribution Width 13.5 % (11.5-17.5); White Blood Count 5.4 K/mm3 (4.8-10.8)
[2022-09-17 14:54] LABS: Chloride 103 mmol/L (98-107); Potassium 4.3 mmoL/L (3.5-5.1); Sodium 135 mmol/L (136-145)
[2022-09-17 14:56] LABS: Alanine Aminotransferase 15 U/L (12-78); Alkaline Phosphatase 79 U/L (38-126); Aspartate Amino Transferase 24 U/L (14-36); Bilirubin,Total 0.3 mg/dl (0.2-1.3); Blood Urea Nitrogen 14 mg/dl (7-17); Estimated Glomerular Filt Rate 85 ml/min (>60); GFR (African American) 103 ML/MIN (>60)
[2022-09-17 14:57] LABS: Albumin Level 4.1 g/dl (3.5-5.0); Albumin/Globulin Ratio 1.6 (1.1-1.8); Anion Gap 9.3 mEq/L (5-15); Calcium 8.6 mg/dl (8.4-10.2); Carbon Dioxide 27 mmol/L (22.0-30.0); Chol/HDL Ratio 2.9 (1-3.5); Cholesterol 138 mg/dl (140-200); Globulin 2.6 g/dL (1.3-3.2); Glucose 74 mg/dl (74-100); HDL Cholesterol 48 mg/dl (40-60); Iron 51 ug/dL (37-170); Total Protein,Serum 6.7 g/dl (6.3-8.2); Triglycerides 36 mg/dl (30-150); VLDL Cholesterol 7 mg/dL (0-40)
[2022-09-17 15:07] LABS: Total Iron Binding Capacity 341 ug/dL (265-497)
[2022-09-17 15:08] LABS: Erythrocyte Sedimentation Rate 16 mm/hr (0-20)
[2022-09-17 15:18] LABS: 25-OH Vitamin D, Total 18.7 ng/mL (30-100)
[2022-09-17 15:28] LABS: Thyroid Stimulating Hormone 1.41 uIU/mL (0.465-4.68)
[2022-09-17 15:32] LABS: Ferritin 13.6 ng/ml (6.24-137)
[2022-09-19 12:47] LABS: Anti-Centromere B Antibodies 3.2 AI (0.0-0.9); Anti-DNA (DS) Ab Qn <1 IU/mL (0-9); Anti-Jo-1 <0.2 AI (0.0-0.9); Anti-Smith Antibody <0.2 AI (0.0-0.9); Antichromatin Antibodies <0.2 AI (0.0-0.9); Antiscleroderma-70 Antibodies <0.2 AI (0.0-0.9); RNP Antibodies 0.2 AI (0.0-0.9); Sjogren's Anti-SS-A <0.2 AI (0.0-0.9); Sjogren's Anti-SS-B <0.2 AI (0.0-0.9)
== END ==
PROVIDERS: PCP Nurse Practitioner Family; Visit Provider Nurse Practitioner Family
DX: R53.83 Other fatigue (principal); D50.9 Iron deficiency anemia, unspecified; E55.9 Vitamin D deficiency, unspecified; M35.9 Systemic involvement of connective tissue, unspecified
CPT/HCPCS: 80053; 80061; 82306; 82728; 83540; 83550; 84443; 85025; 85651; 86225; 86235

== ENCOUNTER 2023-02-14 18:07 | Emergency (ER) | payer OTHER, SELFPAY ==
[2023-02-14 18:15] VITALS: BP 121/71; PULSE 72; RESP 20; TEMP 37; O2SAT 98; BMI 26.6
--- NOTE | 2023-02-14 18:19 | EXP.UTC ---
Discharge Plan Disposition Patient Disposition: Home, Self-Care Condition: Good Prescriptions Prescriptions: New azithromycin [Zithromax] 250 mg tablet 250 mg PO UD DOSE PK Qty: 6 0RF Rx Instructions: Take two (2) tablets today, then one (1) tablet days #2 thru #5 dlmyjggnbrjpknu-alkoxopub-KG [Bromfed DM] 2-30-10 mg/5 mL Syrup 5 ml PO Q6H PRN (Reason: Cough) Qty: 240 0RF methylprednisolone 4 mg Tablets,Dose Pack 4 mg PO DIRECTED Qty: 21 0RF No Action Slow Fe 142 mg (45 mg iron) tablet extended release 142 mg PO DAILY Qty: 30 5RF cholecalciferol (vitamin D3) 1,250 mcg (50,000 unit) tablet 1,250 mcg PO WEEKLY Qty: 7 2RF cholecalciferol (vitamin D3) 50 mcg (2,000 unit) capsule 50 mcg PO DAILY Qty: 30 4RF Referrals Follow up/Referrals: Garth Ashley APRN [Primary Care Provider] - See instructions Activity Restrictions/Add. Instructions Additional Instructions/Restrictions: Drink plenty of fluids. Take tylenol or ibuprofen for pain or fever. Take the medications as directed. Follow up with your regular doctor. GO TO THE ER FOR ANY WORSENING SYMPTOMS Clinical Impressions Clinical Impression: Acute bronchitis Instructions Patient Instructions: Acute Bronchitis Discharge ED Provider: Ortiz Lowe [facility] General Stated complaint: cough Time Seen by Provider: 02/14/23 18:19 History of Present Illness Provider Complaint: She states that for the past 2 weeks she has had chest congestion and a productive cough. She denies any fever/chills. Related Data Previous Rx's Medication Instructions Recorded ferrous sulfate 142 mg (45 mg 142 mg PO DAILY #30 tabs 04/23/21 iron) tablet,extended release (Slow Fe) cholecalciferol (vitamin D3) 1,250 1,250 mcg PO WEEKLY #7 tabs 09/23/22 mcg (50,000 unit) tablet cholecalciferol (vitamin D3) 50 50 mcg PO DAILY #30 caps 09/23/22 mcg (2,000 unit) capsule azithromycin 250 mg tablet 250 mg PO UD DOSE PK #6 tabs 02/14/23 (Zithromax) jzlqmkkbolpomar-vbgddqwcujskkhh-OZ 5 ml PO Q6H PRN Cough #240 mL 02/14/23 2 mg-30 mg-10 mg/5 mL oral syrup (Bromfed DM) methylprednisolone 4 mg tablets in 4 mg PO DIRECTED #21 tabs 02/14/23 a dose pack Allergies Allergy/AdvReac Type Severity Reaction Status Date / Time No Known Allergies Allergy Verified 09/17/22 10:50 [facility]SH [facility] Disclaimer: The information contained in this section may have been updated after the patient was seen, as this information can be updated by other users. Social History Smoking Status: Current every day smoker tobacco type: e-cigarettes alcohol intake: current substance use type: denies use current occupational status: employed Travel in the last 8 weeks: None housing: house caffeine: Yes ROS Obtained: Yes All systems reviewed & no additional complaints except as documented Constitutional Constitutional: Reports poor appetite Eyes Eyes: Reports system reviewed and no additional complaints, except as documented ENT Ears, Nose, Mouth, and Throat: Reports as per HPI Cardiovascular Cardiovascular: Reports system reviewed and no additional complaints, except as documented and Denies chest pain Respiratory Respiratory: Denies shortness of breath, Reports chest congestion, Reports cough, Denies stridor and Denies wheezing Gastrointestinal Gastrointestingal: Reports system reviewed and no additional complaints, except as documented; Denies abdominal pain, diarrhea or vomiting Musculoskeletal Musculoskeletal: Reports system reviewed and no additional complaints, except as documented and Denies arthralgias Integumentary/Breasts Skin/Breast: Reports system reviewed and no additional complaints, except as documented and Denies rash Neurologic Neurologic: Denies paresthesias Allergic/Immunologic Allergic/Immunologic: Denies wheezing Physical Exam General General appearance: alert and in no apparent distress Eye Eye exam: P
[2023-02-14 19:10] VITALS: BP 121/71; PULSE 72; RESP 20; TEMP 37; O2SAT 98
== END 2023-02-14 19:13 | disposition home or self-care (01) ==
PROVIDERS: Emergency Provider Nurse Practitioner Family; PCP Nurse Practitioner Family
DX: J20.9 Acute bronchitis, unspecified (principal); F17.290 Nicotine dependence, other tobacco product, uncomplicated
CPT/HCPCS: 99212; 99214; G0463

== ENCOUNTER 2023-08-23 05:08 | Emergency (ER) | payer OTHER, SELFPAY ==
[2023-08-23 05:09] VITALS: BP 113/67; PULSE 88; RESP 16; TEMP 36.4; O2SAT 100; BMI 29.0
[2023-08-23 05:12] VITALS: BMI 29.0
[2023-08-23] MEDS: ACETAMINOPHEN 500MG TAB 1000 MG PO (05:15)
[2023-08-23] MEDS: IBUPROFEN 600 MG TABLET PO (05:16)
[2023-08-23 05:18] LABS: Coronavirus 19, PCR Not Detected (NotDetected); Influenza A, PCR Not Detected (NotDetected)
--- NOTE | 2023-08-23 05:20 | HMH.EDGENADL ---
Discharge Plan Disposition Patient Disposition: Home, Self-Care Prescriptions Prescriptions: New ondansetron HCl 4 mg tablet 4 mg PO Q8H PRN (Reason: nausea and vomiting) 5 Days Qty: 30 0RF No Action Slow Fe 142 mg (45 mg iron) tablet extended release 142 mg PO DAILY Qty: 30 5RF cholecalciferol (vitamin D3) 1,250 mcg (50,000 unit) tablet 1,250 mcg PO WEEKLY Qty: 7 2RF cholecalciferol (vitamin D3) 50 mcg (2,000 unit) capsule 50 mcg PO DAILY Qty: 30 4RF azithromycin [Zithromax] 250 mg tablet 250 mg PO UD DOSE PK Qty: 6 0RF Rx Instructions: Take two (2) tablets today, then one (1) tablet days #2 thru #5 swqbkessxyikxjv-swuwppijy-ET [Bromfed DM] 2-30-10 mg/5 mL Syrup 5 ml PO Q6H PRN (Reason: Cough) Qty: 240 0RF methylprednisolone 4 mg Tablets,Dose Pack 4 mg PO DIRECTED Qty: 21 0RF Referrals Follow up/Referrals: Garth Ashley APRN [Primary Care Provider] - See instructions Activity Restrictions/Add. Instructions Additional Instructions/Restrictions: Please follow-up with your primary care provider. Please return to the emergency department if you develop any new or worsening symptoms or become concerned for your health. Please take Zofran as needed for nausea and vomiting. Clinical Impressions Clinical Impression: Flu-like symptoms Discharge ED Provider: Ji Duffy Adult HPI General Chief complaint: Upper Respiratory Infection Stated complaint: congestion, cough, sore throat, body aches Time Seen by Provider: 08/23/23 05:20 Mode of Arrival: Ambulatory Source of Information: Patient Limitations: No Limitations Description of Symptoms (Recalled from ER Triage Doc. by RN): Patient has been having body aches, cough, and sore throat since Wednesday. Patient felt too weak to go to work tody. History of Present Illness HPI narrative: 27-year-old female with no significant past medical history presents with flulike symptoms. She reports symptoms started on Wednesday. These include headache, body aches, cough, chills. She vomited once yesterday. She reports her symptoms are worsening and not improving and so she presents for further evaluation. Related Data Allergies Allergy/AdvReac Type Severity Reaction Status Date / Time No Known Allergies Allergy Verified 09/17/22 10:50 [facility] Disclaimer: The information contained in this section may have been updated after the patient was seen, as this information can be updated by other users. Social History Smoking Status: Current every day smoker tobacco type: e-cigarettes alcohol intake: current substance use type: denies use current occupational status: employed Travel in the last 8 weeks: None housing: house caffeine: Yes ROS Obtained: Yes All systems reviewed & no additional complaints except as documented Physical Exam General General appearance: alert and in no apparent distress Head Head exam: atraumatic and normocephalic Eye Eye exam: Present normal appearance, PERRL and EOMI ENT ENT exam: Present normal oropharynx, mucous membranes moist and normal external ear exam Neck Neck exam: Present normal inspection and full ROM Chest Chest inspection: Present normal inspection and symmetric chest wall rise; Absent tenderness Respiratory Respiratory exam: Present normal lung sounds bilaterally; Absent respiratory distress Cardiovascular Cardiovascular exam: Present regular rate and normal rhythm Abdominal Exam Abdominal exam: Present soft; Absent distention, tenderness or guarding Extremities Exam Extremities exam: Present normal inspection; Absent edema or joint swelling Back Exam Back exam: Present normal inspection; Absent tenderness Neurological Exam Neurological exam: Present alert and oriented X3; Absent motor sensory deficit Psychiatric Psychiatric exam: Present normal affect and normal mood Skin Skin exam: Present warm, dry and normal color Lymphatic Lymphatic Findings: no adenopathy Medical Decision Making Medical Records Medical records reviewed: Yes I reviewed the patient's medical records. Alexandre Inquiry Pt receiving controlled substance: No Alexandre was queried for this patient: No Vital Signs: 08/23/23 05:09 Temperature 97.6 F Temperature Source Oral Pulse Rate [Radial] 88 Respiratory Rate 16 Blood Pressure [Right Arm] 113/67 Blood Pressure Mean [Right Arm] 82 Blood Pressure Source [Right Arm] Automatic Cuff Blood Pressure Position [Right Arm] Sitting 02 Sat by Pulse Oximetry 100 Oxygen Delivery Method Room Air Lab Data Lab results reviewed: Yes I reviewed the patient's lab results. Orders (Tests/Meds): ED MEDICATIONS Generic Name Dose Route Start Last Admin Trade Name Freq PRN Reason Stop Dose Admin Acetaminophen 1,000 mg 08/23/23 05:12 08/23/23 05:15 Acetaminophen 500mg Tab PO 08/23/23 05:13 1,000 mg ONCE ONE Administration Ibuprofen 600 mg 08/23/23 05:12 08/23/23 05:16 Ibuprofen 600 Mg Tablet PO 08/23/23 05:13 600 mg ONCE ONE Administration ORDERS Category Date Time Status Rapid PCR Covid and Flu A/B Stat Lab 08/23/23 05:14 Received Medical Decision Narrative: 27-year-old female with no significant past medical history presents with flulike symptoms since Wednesday. Differential diagnosis includes but limited to influenza, COVID, pneumonia, URI, strep throat. On exam, vital signs normal, lung sounds clear bilaterally, oropharynx clear. No evidence of bacterial infection at this time. Likely influenza. COVID flu swab was sent and patient was discharged in stable condition with prescription for Zofran. Return precautions given. Procedures Risk/Benefits of Procedure(s) Were Explained: Yes Critical Care Critical Care Time Critical Care Time: No
[2023-08-23 05:22] VITALS: BP 113/67; PULSE 88; RESP 16; TEMP 36.4; O2SAT 100
[2023-08-23 05:47] LABS: Influenza B, PCR Detected (NotDetected)
== END 2023-08-23 05:24 | disposition home or self-care (01) ==
PROVIDERS: Emergency Provider Emergency Medicine; PCP Nurse Practitioner Family
DX: R51.9 Headache, unspecified (principal); R05.9 Cough, unspecified; J02.9 Acute pharyngitis, unspecified; R68.83 Chills (without fever); F17.290 Nicotine dependence, other tobacco product, uncomplicated; R11.10 Vomiting, unspecified
CPT/HCPCS: 87636; 99283

== ENCOUNTER 2024-04-22 08:05 | Outpatient (CLI) | payer OTHER, SELFPAY ==
[2024-04-22 08:59] LABS: Iron 44 ug/dL (37-170)
[2024-04-22 09:08] LABS: Total Iron Binding Capacity 351 ug/dL (265-497)
[2024-04-22 09:35] LABS: Ferritin 6.42 ng/ml (6.24-137)
[2024-04-22 10:14] LABS: Vitamin B12 870 pg/mL (239-931)
[2024-04-22 10:19] LABS: Folate 9.71 ng/mL
== END 2024-04-22 23:59 | disposition home or self-care (01) ==
LOC: LAB 08:07
PROVIDERS: PCP Nurse Practitioner Family; Visit Provider Nurse Practitioner Family
DX: M35.9 Systemic involvement of connective tissue, unspecified (principal); R53.83 Other fatigue
CPT/HCPCS: 36415; 82607; 82728; 82746; 83540; 83550

== ENCOUNTER 2024-04-27 11:01 | Outpatient (CLI) | payer OTHER, SELFPAY ==
--- NOTE | 2024-04-27 11:01 | CA_ITS ---
APPROVED REPORT EXAM: Comprehensive 2D, Doppler, and color-flow Echocardiogram [place] Machine Operator: Ofelia Allen CRT Ht: 5 ft 7 in Wt: 141lbs BSA: 1.74 BP: 116/74 mmHg Indications: Chest Pain, Shortness of Breath, Fatigue, anemia, smoker 2D Dimensions LA Volume 27.40 mL LA Volume Index 15.75 mL/m2 (M/F) 16-34 M-Mode Dimensions RVDd 2.43 cm (0.9-2.6) LA Diam 2.76 cm (1.9-4.0) LVDd 4.69 cm (3.5-5.7) LVDs 3.12 cm (3.5-5.7) IVSd 0.98 cm (0.6-1.1) PWd 0.69 cm (0.6-1.1) EF (Teich) 62.20% FS 33.50% EDV (Teich) 101.90 mL TAPSE 1.61 (<1.7) ESV (Teich) 38.50 mL LV Diastology E Decel Time 150 (160-240 msec) E/A Ratio 1.5 MED A' 12.40 cm/s LAT A' 9.90 cm/s Aortic Valve AO Peak GR. 5.30 mmHg Mitral Valve MV E Max Carson. 72.0 (40-130 cm/s) MV A Velocity 47.0 (40-130 cm/s) E/A Ratio 1.54 MV PHT 44.0 ms Pulmonary Valve PV Peak Velocity 145.0 (50-150 cm/s) Tricuspid Valve TR P. Velocity 183.00 cm/s RAP Estimate 10.00 mmHg RVSP 23.30 mmHg Left Ventricle The left ventricle is normal size. The left ventricular systolic function is normal. The left ventricular ejection fraction is within the normal range. There is normal left ventricular wall thickness. There is normal LV segmental wall motion. The left ventricular diastolic function is normal. LVEF is 55%. Right Ventricle Right ventricle is borderline dilated. The right ventricular systolic function is low-normal. Atria The left atrium size is normal. The right atrium size is normal. There is no Doppler evidence of interatrial shunt. Aortic Valve The aortic valve is normal in structure. The aortic valve is trileaflet. There is no aortic valvular stenosis. No aortic regurgitation is present. Mitral Valve The mitral valve is normal in structure. No evidence of mitral valve stenosis. There is no mitral valve regurgitation noted. Tricuspid Valve The tricuspid valve leaflets are thin and pliable. Trace tricuspid regurgitation. There is insufficient TR jet to estimate RVSP. Pulmonic Valve The pulmonary valve is normal in structure. Mild pulmonic regurgitation. Great Vessels The aortic root is normal in size. The ascending aorta is normal in size. IVC is normal in size and collapses >50% with inspiration. Pericardium There is no pericardial effusion. Other Information Study Quality: Adequate Conclusion Normal LV systolic function. Borderline RV dilation with low-normal RV function. Mild PI. Electronically signed by : Linda Shepherd MD 05/02/2024 13:30:05
== END 2024-04-27 23:59 | disposition home or self-care (01) ==
LOC: RT 11:01
PROVIDERS: PCP Nurse Practitioner Family; Visit Provider Nurse Practitioner Family
DX: R07.89 Other chest pain (principal); R06.02 Shortness of breath
CPT/HCPCS: 93306

== ENCOUNTER 2024-05-31 09:21 | Outpatient (CLI) | payer OTHER, SELFPAY ==
[2024-05-31 09:38] LABS: Basophils # 0.1 K/mm3 (0-0.2); Basophils % 1.2 % (0.1-2.0); Eosinophils # 0.1 K/mm3 (0.0-0.4); Hematocrit 39.1 % (37.0-47.0); Hemoglobin 12.6 g/dL (12.2-16.2); Lymphocytes # 1.7 K/mm3 (0.7-4.5); Lymphocytes % 29.6 % (10-50); Mean Corpuscular HGB Conc 32.3 g/dL (31.8-35.4); Mean Corpuscular Hemoglobin 28.3 pg (27.0-31.2); Mean Corpuscular Volume 87.7 fl (81-99); Mean Platelet Volume 7.7 fl (7.4-10.4); Monocytes # 0.3 K/mm3 (0.1-1.0); Monocytes % 5.7 % (1.7-9.3); Neutrophils # 3.4 K/mm3 (1.8-7.8); Neutrophils % 61.4 % (37.0-80.0); Platelet Count 271 K/mm3 (142-424); Red Blood Count 4.46 M/mm3 (4.20-5.40); Red Cell Distribution Width 16.3 % (11.5-17.5); White Blood Count 5.6 K/mm3 (4.8-10.8)
[2024-05-31 10:05] LABS: Albumin Level 4.2 g/dl (3.5-5.0); Chloride 106 mmol/L (98-107)
[2024-05-31 10:06] LABS: Sodium 140 mmol/L (136-145)
[2024-05-31 10:08] LABS: Alanine Aminotransferase 15 U/L (12-78); Aspartate Amino Transferase 23 U/L (14-36); Bilirubin,Unconjugated 0.4 mg/dL (0.0-1.1); Blood Urea Nitrogen 9 mg/dl (7-17); Carbon Dioxide 25 mmol/L (22.0-30.0); Estimated Glomerular Filt Rate 74 ml/min (>60); GFR (African American) 89 ML/MIN (>60); Total Protein,Serum 6.9 g/dl (6.3-8.2)
[2024-05-31 10:09] LABS: Alkaline Phosphatase 37 U/L (38-126); Bilirubin,Direct 0.1 mg/dl (0.0-0.4); Bilirubin,Indirect 0.4 mg/dL (0.0-0.9); Bilirubin,Total 0.5 mg/dl (0.2-1.3); Calcium 9.1 mg/dl (8.4-10.2); Chol/HDL Ratio 3.1 (1-3.5); Cholesterol 171 mg/dl (140-200); Glucose 59 mg/dl (74-100); HDL Cholesterol 56 mg/dl (40-60); Triglycerides 98 mg/dl (30-150); VLDL Cholesterol 20 mg/dL (0-40)
[2024-05-31 10:25] LABS: Free T4 (Free Thyroxine) 0.99 ng/dl (0.78-2.19)
[2024-05-31 10:26] LABS: Direct LDL Cholesterol 86.54 mg/dL (100-129)
== END 2024-05-31 23:59 | disposition home or self-care (01) ==
LOC: LAB 09:22
PROVIDERS: PCP Nurse Practitioner Family; Visit Provider Nurse Practitioner
DX: R06.02 Shortness of breath (principal); R07.9 Chest pain, unspecified; Z72.89 Other problems related to lifestyle; R94.31 Abnormal electrocardiogram [ECG] [EKG]
CPT/HCPCS: 36415; 80048; 80061; 80076; 83735; 84439; 84443; 85025

== ENCOUNTER 2024-06-06 14:39 | Outpatient (CLI) | payer OTHER, SELFPAY ==
--- NOTE | 2024-06-06 14:40 | US_ITS ---
PROCEDURE INFORMATION: Exam: US Right Breast, Complete Exam date and time: 06/06/2024 2:40 PM Age: 28 years old Clinical indication: RT palpable breast lump TECHNIQUE: Imaging protocol: Complete ultrasound of all four quadrants of the right breast and the retroareolar regions, including ultrasound of the axilla when performed. COMPARISON: No relevant prior studies available. FINDINGS: ULTRASOUND: Breast ultrasound findings: Sonographic images of the brief breast including the retroareolar region, all 4 quadrants and the axilla do not demonstrate any solid masses. Palpable abnormality in the 10 o'clock axis 5 cm from the nipple corresponds to a 0.3 cm cyst. 0.5 cm cluster of cysts in the right 10 o'clock axis 5 cm from the nipple . Additional 0.4 cm cyst in the 10 o'clock axis 3 cm from the nipple. No architectural distortion or acoustical shadowing. No skin thickening or axillary adenopathy. IMPRESSION: No sonographic evidence of malignancy. Minimal subcentimeter cystic change in the region of palpable concern. A diagnostic right mammogram is recommended for full evaluation of the patient's complaint of a palpable abnormality given the small size of the cysts, which are probably not palpable. ASSESSMENT: BI-RADS Category 0: Incomplete- Need Additional Imaging Evaluation
== END 2024-06-06 23:59 | disposition home or self-care (01) ==
LOC: RAD 14:40
PROVIDERS: PCP Nurse Practitioner Family; Visit Provider Nurse Practitioner Obstetrics & Gynecology
DX: N63.11 Unspecified lump in the right breast, upper outer quadrant (principal)
CPT/HCPCS: 76641

== ENCOUNTER 2024-06-15 09:02 | Outpatient (CLI) | payer OTHER, SELFPAY ==
--- NOTE | 2024-06-15 09:03 | CT_ITS ---
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 A noncontrast coronary calcium scan was performed. A CT attenuation threshold of 130 Hounsfield units (HU) was used for the detection of calcium in contiguous voxels of 1 sq mm in area to be counted as individual lesions. Bolus tracking in the ascending aorta with a threshold of 180 HU was performed. Immediately afterwards, ECG synchronized cardiac CT was then performed from the cardiac base to apex using retrospective gating with ECG tube current modulation. A total of 85 mL of Isovue 370 mg/mL contrast medium was administered at 5 mL/sec followed by a saline flush using a biphasic injection protocol. A tube voltage of 120 KVp was used. The average heart rate at the time of acquisition was 54 bpm and regular. Image Reconstruction Transaxial images were reconstructed at 0.67 mm slide thickness. Data was reviewed interactively on an advanced workstation capable of 2 and 3-dimensional displays in all conventional reconstruction formats, including multiplanar reformations, maximum intensity projections, curved multiplanar reformations, and volume rendered reconstructions. When applicable, selected routine images describing the relevant coronary anatomy and pathology were saved and sent to PACS. Complications None Technical Quality Overall image quality was good. Coronary artery opacification was adequate. Total DLP (Dose-Length Product) is 1725.2 mGy-cm. The reported value represents the total of one or more individual components during the CT acquisition of this date and at this time, and as such, the same value may appear in more than one CT report depending on the interpreting/reporting physicians. COMPARISON None FINDINGS CT Coronary Calcium Scoring LMA (Left Main Artery) = 0 LAD (Left Anterior Descending) = 0 LCX (Left Coronary Circumflex) = 0 RCA (Right Coronary Artery) = 0 Total Calcium Score = 0 using the AJ-130 method. The interpretation of the calcium heart score is based on the following continuum*: 0 = no calcified plaque detected (risk of coronary artery disease is very low ??? less than 5%) 1-10 = calcium detected in extremely minimal levels (risk of coronary diseases is still low ??? less than 10%) 11-100 = mild levels of plaque detected with certainty (mild or minimal narrowing of heart arteries is likely) 101-400 = definite,at least moderate levels of plaque detected (relatively high risk of a heart attack within 3-5 years) >401-999 = extensive levels of plaque detected (high risk of heart attack, high levels of vascular disease are present, high likelihood of at least one significant coronary narrowing) *The calcium heart score quantifies the burden of coronary calcification/plaque in the coronary arteries. The calcium heart score is not able to evaluate the presence or burden of non-calcified (i.e. soft) plaque. There is no identifiable calcification in the aortic valve, mitral annulus or mitral valve, pericardium, or myocardium. Coronary CT Angiography The coronary arterial system is right dominant. Quantitative Stenosis Grading: Left Main (LM): The left main originates normally from the left sinus of Valsalva. The LM bifurcates into the left anterior descending artery and left circumflex artery. The LM is patent with no evidence of atherosclerosis. Left Anterior Descending (LAD) and Diagonal Branches: The LAD gives off 3 diagonal branch(es). The LAD and its branches are patent with no evidence of atherosclerosis. There is no evidence of LAD-myocardial bridge. Left Circumflex (LCX) and Obtuse Marginals (OM): The LCX gives off 1 Obtuse Marginal (OM) branch(es). The LCX and its branches are patent with no evidence of atherosclerosis. Right Coronary Artery (RCA): The RCA originates normally from the right sinus of Valsalva. The RCA gives off a posterior descending artery (PDA) and posterolateral (PL) branches. The RCA and its branches are patent with no evidence of atherosclerosis. Non-Coronary Cardiac Findings: Analysis of the left ventricular (LV) structure and function was performed after 3-D reconstruction of the LV from axial images, with user-corrected automatic contouring for assessment of LV volumes and user-defined reconstruction from oblique planes for measurement of 3-D cardiac structure and function. -The left ventricle systolic function is normal. -There is no left atrial appendage filling defect. Two right pulmonary veins and two left pulmonary veins drain normally into the left atrium. -No pericardial thickening or calcification. -Central and branch pulmonary arteries in the [id number] are unremarkable. -Thoracic aorta within the visualized thoracic aortic-branches in the [id number] is unremarkable. Extracardiac Structures No significant extra-cardiac findings. Note, however, that this study is focused on the cardiac findings. IMPRESSION -No coronary calcification with an Agatston score = 0 using the AJ-130 method. -No evidence of significant flow-limiting atherosclerosis of the coronary arteries. -No evidence of coronary anomalies or myocardial bridges. -CAD-RADS 0. Management recommendations per ACC/AHA guidelines*, as clinically appropriate. *Recommendations: CAD RADS 0: Reassurance. Consider non-atherosclerotic causes of chest pain. CAD RADS 1: Consider non-atherosclerotic causes of chest pain. Consider preventive therapy and risk factor modification. CAD RADS 2: Consider non-atherosclerotic causes of chest pain. Consider preventive therapy and risk factor modification, particularly for patients with nonobstructive plaque in multiple segments. CAD RADS 3: Consider further functional testing. Consider symptom-guided anti-ischemic and preventive pharmacotherapy as well as risk factor modification per published guideline statements. CAD RADS 4A: Consider further functional testing or invasive coronary angiography with revascularization per published guideline statements. Consider symptom-guided anti-ischemic and preventive pharmacotherapy as well as risk factor modification per published guideline statements. CAD RADS 4B: Invasive coronary angiography recommended with revascularization per published guideline statements. Consider symptom-guided anti-ischemic and preventive pharmacotherapy as well as risk factor modification per published guideline statements. CAD RADS 5: Consider invasive angiography and/or viability assessment with revascularization per published guideline statements. Consider symptom-guided anti-ischemic and preventive pharmacotherapy as well as risk factor modification per published guideline statements. CRITICAL RESULT None COMMUNICATION Per this written report The coronary and cardiac findings of this CCTA were reviewed, reported, and signed by Tonio Shepherd MD (Finishing Inspector) Conclusion Electronically signed by : Linda Shepherd MD 06/16/2024 00:19:51
[2024-06-15 09:35] VITALS: BP 104/60; PULSE 64; RESP 18; O2SAT 100
[2024-06-15 09:57] LABS: Urine Pregnancy, HCG Qual. Negative (Negative)
[2024-06-15 10:15] VITALS: BP 112/72; PULSE 60; RESP 18; O2SAT 100
[2024-06-15] MEDS: NITROGLYCERIN 0.4MG SL TABLET SL (10:15)
[2024-06-15 10:20] VITALS: BP 99/54; PULSE 59; RESP 18; O2SAT 100
[2024-06-15 10:25] VITALS: BP 96/52; PULSE 60; RESP 18; O2SAT 100
[2024-06-15 10:30] VITALS: BP 104/56; PULSE 61; RESP 18; O2SAT 100
[2024-06-15] MEDS: SODIUM CHLORIDE 0.9% 10ML SYR (RAD ONLY) 10 ML IV (10:42)
[2024-06-15] MEDS: 0.9 % SODIUM CHLORIDE 50 ML VIAL IV (10:42)
[2024-06-15] MEDS: IOPAMIDOL-370 (76%);100ML BOTTLE 85 ML IV (10:42)
== END 2024-06-15 10:40 | disposition home or self-care (01) ==
LOC: RAD 09:03
PROVIDERS: PCP Nurse Practitioner Family; Visit Provider Nurse Practitioner
DX: R94.31 Abnormal electrocardiogram [ECG] [EKG] (principal); R06.02 Shortness of breath; R07.9 Chest pain, unspecified; Z72.89 Other problems related to lifestyle
CPT/HCPCS: 75574; 81025; Q9967

== ENCOUNTER → 2024-06-26 06:24 | Outpatient (CLI) | payer OTHER, SELFPAY | LOC: SL 06:25 | PROVIDERS: PCP Nurse Practitioner; Visit Provider Nurse Practitioner | DX: G47.9 Sleep disorder, unspecified (principal); R06.02 Shortness of breath; R07.9 Chest pain, unspecified; R94.31 Abnormal electrocardiogram [ECG] [EKG]; R06.83 Snoring; R40.0 Somnolence; R53.83 Other fatigue; Z72.89 Other problems related to lifestyle | CPT/HCPCS: G0399 ==

== ENCOUNTER 2024-06-30 13:48 | Outpatient (CLI) | payer OTHER, SELFPAY ==
--- NOTE | 2024-06-30 13:50 | MM_ITS ---
PROCEDURE INFORMATION: Exam: Right Diagnostic Breast Tomosynthesis Exam date and time: 06/30/2024 1:36 PM Age: 28 years old Clinical indication: Right breast palpable lump TECHNIQUE: Imaging protocol: Right Diagnostic tomosynthesis and 2D mammography including computer-aided detection (CAD) when performed. Unilateral or bilateral exam. COMPARISON: US BREAST RT COMPLETE 06/06/2024 2:40 PM FINDINGS: MAMMOGRAPHY: Breast composition: Breast composition: The breast is extremely dense, which lowers the sensitivity of mammography. Breast mammogram findings: There is no stellate mass, architectural distortion or suspicious microcalcifications to suggest malignancy. No suspicious findings on routine or spot compression views of the right upper outer quadrant where the patient reports a palpable abnormality. No skin thickening or axillary adenopathy. Review of patient's most recent sonogram demonstrated underlying cystic change in the right upper outer quadrant. IMPRESSION: Palpable abnormality in the right breast corresponds both mammographically and sonographically to normal fibroglandular structures and underlying subcentimeter cystic change. A six-month follow-up targeted right upper outer quadrant ultrasound is recommended to follow-up the underlying cystic change in the region of palpable concern. Further evaluation of a palpable abnormality should be based on clinical grounds regardless of radiographic findings or lack thereof. ASSESSMENT: BI-RADS Category 3: Probably benign.
== END 2024-06-30 23:59 | disposition home or self-care (01) ==
LOC: RAD 13:50
PROVIDERS: PCP Nurse Practitioner Family; Visit Provider Obstetrics & Gynecology
DX: N63.11 Unspecified lump in the right breast, upper outer quadrant (principal)
CPT/HCPCS: 77061; 77065; G0279

== ENCOUNTER 2024-08-14 14:14 | Outpatient (CLI) | payer OTHER, SELFPAY ==
[2024-08-14 16:19] LABS: T4 (Thyroxine) 11.5 ug/dl (5.53-11.0)
[2024-08-14 16:33] LABS: Thyroid Stimulating Hormone 1.11 uIU/mL (0.465-4.68)
== END 2024-08-14 23:59 | disposition home or self-care (01) ==
LOC: LAB 14:15
PROVIDERS: PCP Nurse Practitioner Family; Visit Provider Nurse Practitioner Family
DX: R79.89 Other specified abnormal findings of blood chemistry (principal)
CPT/HCPCS: 36415; 84436; 84443